=== PATIENT | male | born 1980 | race Two or more races ===

== ENCOUNTER 2017-04-03 10:16 | Inpatient (IN) | payer OTHER ==
[~2017-04-03] VITALS: Ht 172.7 cm; Wt 65.1 kg
[2017-04-03] MEDS ORDERED: SODIUM CHLORIDE 0.9% 1,000 ML IV ONE (11:03)
[2017-04-03] MEDS ORDERED: OMEP-110 PO (11:10)
[2017-04-03] MEDS ORDERED: METF500T4 PO (11:10)
[2017-04-03] MEDS ORDERED: ONDANSETRON 2MG/ML, 2ML ONE (11:16)
[2017-04-03] MEDS ORDERED: HYDROmorphone 1 MG/ML, 1ML ONE (11:16)
[2017-04-03] MEDS ORDERED: SODIUM CHLORIDE FLUSH 10ML SYR IVF ONE (11:30)
[2017-04-03] MEDS ORDERED: ONDANSETRON 2MG/ML, 2ML IVPush ONE (11:30)
[2017-04-03] MEDS ORDERED: HYDROmorphone 1 MG/ML, 1ML IVPush PRN (11:30)
[2017-04-03] MEDS ORDERED: SODIUM CHLORIDE 0.9% 1,000ML IVBOLUS ONE (11:30)
[2017-04-03 11:36] LABS: RAPID INFLUENZA A Negative (Negative); RAPID INFLUENZA B Negative (Negative)
[2017-04-03 11:40] LABS: HEMATOCRIT 47.5 % (39.2-51.8); HEMOGLOBIN 16.1 g/dL (13.7-18.0); WHITE BLOOD COUNT 8.6 x10^3/uL (3.4-10)
[2017-04-03 11:51] LABS: BLOOD UREA NITROGEN 25 mg/dL (7-18)
[2017-04-03 11:55] LABS: ASPARTATE AMINO TRANSFERASE 76 U/L (15-37)
[2017-04-03] MEDS ORDERED: HYDROmorphone 2 MG/ML, 1ML IVPush PRN (13:00)
[2017-04-03] MEDS ORDERED: OXYcodone IR 5MG TABLET PO PRN (13:00)
[2017-04-03] MEDS ORDERED: DEXTROSE 4 GM TAB.CHEW PO PRN (13:00)
[2017-04-03] MEDS ORDERED: ACETAMINOPHEN 325 MG TABLET PO PRN (13:00)
[2017-04-03] MEDS ORDERED: ONDANSETRON 2MG/ML, 2ML IVPush PRN (13:00)
[2017-04-03] MEDS ORDERED: GLUCAGON 1 MG IM PRN (13:00)
[2017-04-03] MEDS ORDERED: DEXTROSE 50%, 50ML SYRINGE IVPush PRN (13:00)
[2017-04-03] MEDS ORDERED: POLYETHYLENE GLYCOL 17 GM PACKET PO PRN (13:00)
[2017-04-03] MEDS ORDERED: DOCUSATE 100 MG CAPSULE PO PRN (13:00)
[2017-04-03 16:07] VITALS: BP 113/67
[2017-04-03] MEDS: NS + 20MEQ KCL 1,000 ML IV SCH ×2 (17:02→23:54)
[2017-04-03] MEDS: NICOTINE 14MG/24 HR PATCH.TD24 TD SCH (17:02)
[2017-04-03] MEDS: ENOXAPARIN 40 MG/0.4 ML SQ SCH (17:03)
[2017-04-03] MEDS: INSULIN ASPART 100 UNITS/ML, PEN SQ-INSULIN SCH ×2 (17:49→22:53)
[2017-04-03] MEDS: PLEASE ENTER ALLERGIES MC SCH ×2 (18:18)
[2017-04-03 19:41] VITALS: BP 102/63
[2017-04-03] MEDS: SODIUM CHLORIDE FLUSH 10ML SYR IVF SCH (22:36)
[2017-04-03] MEDS: FAMOTIDINE 20 MG/2 ML IVPush SCH (22:36)
[2017-04-04] MEDS: PLEASE ENTER ALLERGIES MC SCH ×2 (00:30)
[2017-04-04 01:46] VITALS: BP 107/61
[2017-04-04 05:31] LABS: ASPARTATE AMINO TRANSFERASE 46 U/L (15-37); BLOOD UREA NITROGEN 18 mg/dL (7-18)
[2017-04-04] MEDS: INSULIN ASPART 100 UNITS/ML, PEN SQ-INSULIN SCH ×4 (06:37→21:25)
[2017-04-04 07:26] VITALS: BP 110/68
[2017-04-04] MEDS: SODIUM CHLORIDE FLUSH 10ML SYR IVF SCH ×2 (09:04→21:27)
[2017-04-04] MEDS: FAMOTIDINE 20 MG/2 ML IVPush SCH (09:04)
[2017-04-04 14:02] VITALS: BP 96/58
[2017-04-04] MEDS: ENOXAPARIN 40 MG/0.4 ML SQ SCH (16:15)
[2017-04-04] MEDS: NICOTINE 14MG/24 HR PATCH.TD24 TD SCH (16:15)
[2017-04-04 20:00] VITALS: BP 98/61
[2017-04-04] MEDS: FAMOTIDINE 20 MG TABLET PO SCH (21:24)
[2017-04-05 02:00] VITALS: BP 105/63
[2017-04-05] MEDS: INSULIN ASPART 100 UNITS/ML, PEN SQ-INSULIN SCH (07:00)
[2017-04-05] MEDS ORDERED: FLU VACC QS2017-18 (36MOS+) UP/PF 0.5 ML IM-VACC ONE (07:30)
[2017-04-05] MEDS ORDERED: PNEUMOCOCCAL 23 VACCINE IM-VACC ONE (07:30)
[2017-04-05 08:40] VITALS: BP 90/52
[2017-04-05] MEDS: FAMOTIDINE 20 MG TABLET PO SCH (09:36)
[2017-04-05] MEDS: SODIUM CHLORIDE FLUSH 10ML SYR IVF SCH (09:38)
== END 2017-04-05 11:50 | disposition home or self-care (01) | DRG 438 ==
LOC: ED 12:32 → SUATTDRO 12:36 → EDIP 12:42 → 4NOR 15:54 → DCLOUNGE 04-05 11:35
PROVIDERS: ADMIT Family Medicine; ATTEND Family Medicine
DX: K85.20 Alcohol induced acute pancreatitis without necrosis or infection (principal); N17.0 Acute kidney failure with tubular necrosis; E87.1 Hypo-osmolality and hyponatremia; E11.9 Type 2 diabetes mellitus without complications; E86.0 Dehydration; K21.9 Gastro-esophageal reflux disease without esophagitis; K29.70 Gastritis, unspecified, without bleeding; Z80.0 Family history of malignant neoplasm of digestive organs; Z23 Encounter for immunization; Z79.84 Long term (current) use of oral hypoglycemic drugs; Z79.899 Other long term (current) drug therapy
CPT/HCPCS: 36415; 74022; 76700; 80053; 80061; 81001; 82962; 83690; 83735; 85025; 87086; 87400; 90686; 90732; 96361; 96374; J1170; J1650; J1815; J2405; J3480; J7030; S0028

== ENCOUNTER 2019-04-11 14:20 | Inpatient (IN) | payer OTHER ==
[~2019-04-11] VITALS: Ht 170.2 cm; Wt 58.9 kg
[~2019-04-11 14:20] MED LIST: ERGO500017 PO; FOLI-17 PO; INSULIN; MAGN400T50 PO; METF500T17 PO; OMEP-110 PO; PANT40TA5 PO; PHOS250T3 PO; SUCR1ORA5 PO; THIA100T67 PO
--- NOTE | 2019-04-11 14:57 | NUR ---
REPORT GIVEN FROM FLACA CANALES. DR KHAN HAS UPDATED PATIENT. CALL LIGHT IN PLACE. WILL CONTINUE TO MONITOR.
[2019-04-11] MEDS ORDERED: ONDANSETRON 2MG/ML, 2ML IVPush ONE (15:00)
[2019-04-11] MEDS ORDERED: FAMOTIDINE 20 MG/2 ML IV ONE (15:00)
[2019-04-11] MEDS ORDERED: SODIUM CHLORIDE 0.9% 1,000ML IVBOLUS ONE (15:00)
[2019-04-11] MEDS ORDERED: SODIUM CHLORIDE FLUSH 10ML SYR IVF ONE (15:00)
--- NOTE | 2019-04-11 15:00 | NUR ---
PT BIB GIRLFRIEND FOR N/V SINCE LAST NOC, HX OF DM AND PANCREATITIS. PT DENIES DIARRHEA, ABDOMEN NON TENDER. PT REPORTS HIS URINE THIS AM WAS VERY CONCENTRATED. PT WAS HYPOTENSIVE IN TRIAGE.
--- NOTE | 2019-04-11 15:03 | NUR ---
DR. KHAN AT BEDSIDE. BS WAS 154. IV STARTED AND FLUIDS RUNNING. BLOOD CULTURES X 2 WERE DRAWN.
[2019-04-11 15:12] LABS: BASOPHILS # (AUTO) 0.05 x10^3/uL (0-0.1); BASOPHILS % (AUTO) 1 % (0-1); EOSINOPHILS # (AUTO) 0.12 x10^3/uL (0-0.4); EOSINOPHILS % (AUTO) 2 % (1-7); LYMPHOCYTES # (AUTO) 1.38 x10^3/uL (1-3.4); LYMPHOCYTES % (AUTO) 17 % (22-44); MD NO; MEAN CORPUSCULAR HEMOGLOBIN 30.6 pg (27.5-34.5); MEAN CORPUSCULAR VOLUME 92.8 fL (81-97); MONOCYTES # (AUTO) 0.61 x10^3/uL (0.2-0.8); MONOCYTES % (AUTO) 8 % (2-9); NEUTROPHILS % (AUTO) 73 % (42-75); PLATELET COUNT 359 x10^3/uL (130-400); RED BLOOD COUNT 5.04 x10^6/uL (4.38-5.82); RED CELL DISTRIBUTION WIDTH 17.5 % (9.4-14.8)
--- NOTE | 2019-04-11 15:20 | NUR ---
PT IN CT.
[2019-04-11 15:24] LABS: ALANINE AMINOTRANSFERASE 28 U/L (12-78); ALBUMIN 4.2 g/dL (3.4-5.0); ANION GAP 19 mmol/L (5-15); CALCIUM 9.7 mg/dL (8.5-10.1); CHLORIDE 87 mmol/L (98-107)
[2019-04-11 15:27] LABS: ALKALINE PHOSPHATASE 100 U/L (45-117); BILIRUBIN,TOTAL 0.9 mg/dL (0.2-1.0); TOTAL PROTEIN 8.8 g/dL (6.4-8.2)
[2019-04-11] MEDS ORDERED: ONDANSETRON 2MG/ML, 2ML ONE (16:21)
[2019-04-11] MEDS ORDERED: FAMOTIDINE 20 MG/2 ML ONE (16:21)
[2019-04-11 16:25] LABS: ACETONE, SERUM Small (20mg/dL) mg/dL (Negative)
[2019-04-11] MEDS ORDERED: INSU100V13 SQ (16:27)
--- NOTE | 2019-04-11 16:50 | NUR ---
US BEING DONE AT BEDSIDE. PT IS A MED TELE HOLD.
[2019-04-11] MEDS ORDERED: SODIUM CHLORIDE 0.9% 1,000 ML IV ONE (17:00)
[2019-04-11] MEDS ORDERED: TEMAZEPAM 15 MG CAPSULE PO PRN (18:00)
[2019-04-11] MEDS ORDERED: hydrALAzine 20 MG/ML, 1ML IVPush PRN (18:00)
[2019-04-11] MEDS ORDERED: ACETAMINOPHEN 325 MG TABLET PO PRN (18:00)
[2019-04-11 18:28] VITALS: BP 102/60
[2019-04-11] MEDS ORDERED: POTASSIUM CHLORIDE 20 MEQ TAB.ER.PRT PO ONE (18:30)
[2019-04-11 19:12] LABS: HCT (SEDRATE) 41.5 % (39.2-51.8)
[2019-04-11 19:34] VITALS: BP 97/60
[2019-04-11 19:52] LABS: HEMOGLOBIN A1C 7.9 % (4.2-6.3)
[2019-04-11] MEDS: PANTOPROZOLE 40MG TABLET PO SCH (20:32)
[2019-04-11] MEDS: HEPARIN 5,000 UNITS/ML, 1ML SQ SCH (20:32)
[2019-04-11] MEDS: SODIUM CHLORIDE 0.9% 1,000 ML IV SCH (20:33)
[2019-04-11] MEDS: NICOTINE 21 MG/24 HR PATCH.TD24 TD SCH (20:36)
[2019-04-11] MEDS: INSULIN LISPRO 100 UNITS/ML, PEN SQ-INSULIN SCH ×2 (20:36→23:07)
[2019-04-12 00:22] LABS: MICROSCOPIC INDICATED
[2019-04-12 00:32] LABS: CULTURE INDICATED? NO
[2019-04-12 01:18] VITALS: BP 98/61
[2019-04-12] MEDS: HEPARIN 5,000 UNITS/ML, 1ML SQ SCH ×3 (04:05→20:20)
[2019-04-12] MEDS: SODIUM CHLORIDE 0.9% 1,000 ML IV SCH (04:05)
[2019-04-12] MEDS: ONDANSETRON 2MG/ML, 2ML IVPush PRN ×2 (04:06→11:40)
[2019-04-12] MEDS ORDERED: DEXTROSE 50%, 50ML SYRINGE IVPush PRN (04:30)
[2019-04-12] MEDS ORDERED: DEXTROSE 4 GM TAB.CHEW PO PRN (04:30)
[2019-04-12] MEDS ORDERED: GLUCAGON 1 MG IM PRN (04:30)
[2019-04-12 05:36] LABS: BASOPHILS # (AUTO) 0.03 x10^3/uL (0-0.1); BASOPHILS % (AUTO) 1 % (0-1); EOSINOPHILS # (AUTO) 0.14 x10^3/uL (0-0.4); EOSINOPHILS % (AUTO) 2 % (1-7); LYMPHOCYTES # (AUTO) 1.48 x10^3/uL (1-3.4); LYMPHOCYTES % (AUTO) 22 % (22-44); MD NO; MEAN CORPUSCULAR HGB CONC 32.4 g/dL (33.2-36.2); MEAN CORPUSCULAR VOLUME 92.7 fL (81-97); MEAN PLATELET VOLUME 7.1 fL (7.4-10.4); MONOCYTES # (AUTO) 0.68 x10^3/uL (0.2-0.8); MONOCYTES % (AUTO) 10 % (2-9); NEUTROPHILS # (AUTO) 4.57 x10^3/uL (1.8-6.8); NEUTROPHILS % (AUTO) 66 % (42-75); PLATELET COUNT 305 x10^3/uL (130-400); RED BLOOD COUNT 3.99 x10^6/uL (4.38-5.82); RED CELL DISTRIBUTION WIDTH 17.9 % (9.4-14.8)
[2019-04-12 05:42] LABS: CHLORIDE 100 mmol/L (98-107)
[2019-04-12 05:51] LABS: ALANINE AMINOTRANSFERASE 19 U/L (12-78); ALBUMIN 3.1 g/dL (3.4-5.0); ALKALINE PHOSPHATASE 65 U/L (45-117); ANION GAP 13 mmol/L (5-15); BILIRUBIN,TOTAL 0.8 mg/dL (0.2-1.0); CALCIUM 8.2 mg/dL (8.5-10.1); CREATININE 4.95 mg/dL (0.7-1.3); TOTAL PROTEIN 6.6 g/dL (6.4-8.2)
[2019-04-12] MEDS: INSULIN LISPRO 100 UNITS/ML, PEN SQ-INSULIN SCH ×4 (07:00→20:20)
[2019-04-12 07:04] VITALS: BP 82/42
[2019-04-12 08:17] VITALS: BP 96/54
[2019-04-12] MEDS: SODIUM CHLORIDE FLUSH 10ML SYR IVF SCH ×2 (08:19→20:20)
[2019-04-12] MEDS: PANTOPROZOLE 40MG TABLET PO SCH ×2 (08:19→20:20)
[2019-04-12] MEDS: POTASSIUM CHLORIDE 20 MEQ TAB.ER.PRT PO ONE ×2 (11:40→12:21)
[2019-04-12] MEDS: LACTATED RINGERS 1,000 ML IV SCH ×2 (11:41→20:20)
[2019-04-12 12:36] VITALS: BP 94/55
[2019-04-12] MEDS: NICOTINE 21 MG/24 HR PATCH.TD24 TD SCH (17:43)
[2019-04-12 19:33] VITALS: BP 98/61
[2019-04-12] MEDS: PROMETHAZINE 25 MG/ML, 1ML IM PRN (19:36)
[2019-04-13] MEDS: PROMETHAZINE 25 MG/ML, 1ML IM PRN ×3 (01:13→14:11)
[2019-04-13 02:03] VITALS: BP 93/61
[2019-04-13 05:19] LABS: BASOPHILS # (AUTO) 0.04 x10^3/uL (0-0.1); BASOPHILS % (AUTO) 1 % (0-1); EOSINOPHILS # (AUTO) 0.21 x10^3/uL (0-0.4); EOSINOPHILS % (AUTO) 3 % (1-7); LYMPHOCYTES # (AUTO) 2.21 x10^3/uL (1-3.4); LYMPHOCYTES % (AUTO) 30 % (22-44); MD NO; MEAN CORPUSCULAR HEMOGLOBIN 30.8 pg (27.5-34.5); MEAN CORPUSCULAR HGB CONC 32.7 g/dL (33.2-36.2); MEAN PLATELET VOLUME 7.7 fL (7.4-10.4); MONOCYTES # (AUTO) 0.52 x10^3/uL (0.2-0.8); MONOCYTES % (AUTO) 7 % (2-9); NEUTROPHILS # (AUTO) 4.43 x10^3/uL (1.8-6.8); NEUTROPHILS % (AUTO) 60 % (42-75); PLATELET COUNT 276 x10^3/uL (130-400); RED BLOOD COUNT 3.88 x10^6/uL (4.38-5.82); RED CELL DISTRIBUTION WIDTH 17.6 % (9.4-14.8)
[2019-04-13 05:26] LABS: ALANINE AMINOTRANSFERASE 19 U/L (12-78); ALBUMIN 3.1 g/dL (3.4-5.0); ANION GAP 9 mmol/L (5-15); CALCIUM 8.6 mg/dL (8.5-10.1); CHLORIDE 102 mmol/L (98-107); CREATININE 1.14 mg/dL (0.7-1.3)
[2019-04-13 05:28] LABS: ALKALINE PHOSPHATASE 64 U/L (45-117); BILIRUBIN,TOTAL 0.8 mg/dL (0.2-1.0); TOTAL PROTEIN 6.7 g/dL (6.4-8.2)
[2019-04-13] MEDS: LACTATED RINGERS 1,000 ML IV SCH (05:42)
[2019-04-13] MEDS: ONDANSETRON 2MG/ML, 2ML IVPush PRN ×2 (05:47→12:06)
[2019-04-13 07:35] VITALS: BP 91/52
[2019-04-13] MEDS: HEPARIN 5,000 UNITS/ML, 1ML SQ SCH ×2 (08:48→20:42)
[2019-04-13] MEDS: PANTOPROZOLE 40MG TABLET PO SCH ×2 (08:48→20:42)
[2019-04-13] MEDS: SODIUM CHLORIDE FLUSH 10ML SYR IVF SCH ×2 (08:52→20:43)
[2019-04-13] MEDS: INSULIN LISPRO 100 UNITS/ML, PEN SQ-INSULIN SCH ×4 (08:53→20:43)
[2019-04-13] MEDS ORDERED: POTASSIUM CHLORIDE 40 MEQ in LACTATED RINGERS 1,000 ML IV SCH (10:00)
[2019-04-13] MEDS: POTASSIUM CHLORIDE 40 MEQ in LACTATED RINGERS 1,000 ML IV SCH ×2 (12:26→22:31)
[2019-04-13 14:21] VITALS: BP 106/64
[2019-04-13] MEDS: POTASSIUM CHLORIDE 20 MEQ TAB.ER.PRT PO SCH (16:19)
[2019-04-13] MEDS: CALCIUM CARBONATE 500 MG TAB.CHEW PO SCH ×2 (17:25→20:42)
[2019-04-13] MEDS: NICOTINE 21 MG/24 HR PATCH.TD24 TD SCH (18:43)
[2019-04-13 19:21] VITALS: BP 95/63
[2019-04-14 01:15] VITALS: BP 106/66
[2019-04-14] MEDS: INSULIN LISPRO 100 UNITS/ML, PEN SQ-INSULIN SCH ×3 (07:00→15:58)
[2019-04-14 07:26] VITALS: BP 95/54
[2019-04-14] MEDS: POTASSIUM CHLORIDE 40 MEQ in LACTATED RINGERS 1,000 ML IV SCH (09:56)
[2019-04-14] MEDS: CALCIUM CARBONATE 500 MG TAB.CHEW PO SCH ×2 (09:56→16:02)
[2019-04-14] MEDS: POTASSIUM CHLORIDE 20 MEQ TAB.ER.PRT PO SCH ×2 (09:56→16:02)
[2019-04-14] MEDS: HEPARIN 5,000 UNITS/ML, 1ML SQ SCH (09:56)
[2019-04-14] MEDS: SODIUM CHLORIDE FLUSH 10ML SYR IVF SCH (09:56)
[2019-04-14] MEDS: PANTOPROZOLE 40MG TABLET PO SCH (09:56)
[2019-04-14 11:58] LABS: ANION GAP 10 mmol/L (5-15); CALCIUM 8.7 mg/dL (8.5-10.1); CHLORIDE 106 mmol/L (98-107); CREATININE 0.86 mg/dL (0.7-1.3)
[2019-04-14 12:25] VITALS: BP 105/61
[2019-04-14] MEDS ORDERED: PANT40TA5 PO (15:15)
[2019-04-14] MEDS ORDERED: ONDA8TAB16 SL (15:15)
[2019-04-15 16:21] LABS: ANA SCREEN NEGATIVE (Negative)
== END 2019-04-14 16:44 | disposition home or self-care (01) | DRG 683 ==
LOC: ED 16:08 → EDIP 16:09 → ED 16:31 → 4WST 18:10 → 4EST 04-14 05:30 → DCLOUNGE 04-14 16:32
PROVIDERS: ADMIT Internal Medicine; ATTEND Hospitalist
DX: N17.0 Acute kidney failure with tubular necrosis (principal); E46 Unspecified protein-calorie malnutrition; E87.1 Hypo-osmolality and hyponatremia; E87.2 Acidosis; E86.0 Dehydration; E87.6 Hypokalemia; F17.200 Nicotine dependence, unspecified, uncomplicated; I10 Essential (primary) hypertension; K31.84 Gastroparesis; K52.9 Noninfective gastroenteritis and colitis, unspecified; K21.9 Gastro-esophageal reflux disease without esophagitis; Z79.4 Long term (current) use of insulin; Z79.899 Other long term (current) drug therapy; Z68.20 Body mass index [BMI] 20.0-20.9, adult; E11.649 Type 2 diabetes mellitus with hypoglycemia without coma
CPT/HCPCS: 36415; 74022; 76770; 80048; 80053; 81001; 82010; 82570; 82962; 83036; 83605; 83690; 83735; 83930; 84100; 84156; 84443; 84550; 85025; 85651; 86038; 86160; 86704; 86706; 86708; 86803; 87040; 87340; 93005; 96361; 96374; 99291; J1644; J1815; J2405; J2550; J3480; J3490; J7030; J7120; G0378

== ENCOUNTER 2019-04-30 15:04 | Inpatient (IN) | payer OTHER ==
[~2019-04-30] VITALS: Ht 170.2 cm; Wt 60.4 kg
[~2019-04-30 15:04] MED LIST changes: +INSU100V13 SQ; +ONDA8TAB16 SL
[2019-04-30] MEDS ORDERED: SODIUM CHLORIDE FLUSH 10ML SYR IVF ONE (15:30)
[2019-04-30] MEDS ORDERED: ONDANSETRON 2MG/ML, 2ML IVPush ONE (15:30)
[2019-04-30] MEDS ORDERED: SODIUM CHLORIDE 0.9% 1,000ML IVBOLUS ONE (15:30)
--- NOTE | 2019-04-30 15:39 | NUR ---
PT HERE WITH C/O N/V SINCE YESTERDAY AFTERNOON, PT WITH HX DM. TOOK FSBG THIS AFTERNOON APPROX 1130 AND READING PER PT WAS 120. PT WAS ABLE TO GET SOME BROTH DOWN BUT NOT MUCH ELSE SINCE THEN. PT DENIES CP, SOB. PT TO BP MONITOR, CARD MONITOR, CONT PULSE OX., PIV INITIATED, PT MEDICATED PER JUL
[2019-04-30] MEDS ORDERED: ONDANSETRON 2MG/ML, 2ML ONE (15:42)
[2019-04-30 15:48] LABS: BASOPHILS # (AUTO) 0.03 x10^3/uL (0-0.1); BASOPHILS % (AUTO) 0 % (0-1); EOSINOPHILS # (AUTO) 0.05 x10^3/uL (0-0.4); EOSINOPHILS % (AUTO) 1 % (1-7); LYMPHOCYTES # (AUTO) 1.35 x10^3/uL (1-3.4); LYMPHOCYTES % (AUTO) 16 % (22-44); MD NO; MEAN CORPUSCULAR HEMOGLOBIN 30.6 pg (27.5-34.5); MEAN CORPUSCULAR HGB CONC 32.1 g/dL (33.2-36.2); MEAN CORPUSCULAR VOLUME 95.2 fL (81-97); MEAN PLATELET VOLUME 7.7 fL (7.4-10.4); MONOCYTES # (AUTO) 0.66 x10^3/uL (0.2-0.8); MONOCYTES % (AUTO) 8 % (2-9); NEUTROPHILS # (AUTO) 6.44 x10^3/uL (1.8-6.8); NEUTROPHILS % (AUTO) 76 % (42-75); O2 FLOW ROOM AIR L/min; PLATELET COUNT 381 x10^3/uL (130-400); RED BLOOD COUNT 5.25 x10^6/uL (4.38-5.82); RED CELL DISTRIBUTION WIDTH 16.9 % (9.4-14.8)
[2019-04-30 15:57] LABS: ALANINE AMINOTRANSFERASE 84 U/L (12-78); ALBUMIN 5.2 g/dL (3.4-5.0); ANION GAP 16 mmol/L (5-15); CALCIUM 10.4 mg/dL (8.5-10.1); CHLORIDE 74 mmol/L (98-107); CREATININE 3.62 mg/dL (0.7-1.3)
[2019-04-30 15:59] LABS: ALKALINE PHOSPHATASE 149 U/L (45-117)
[2019-04-30 16:09] LABS: ACETONE, SERUM Small (20mg/dL) mg/dL (Negative)
[2019-04-30] MEDS ORDERED: POTASSIUM CHLORIDE 40 MEQ in SODIUM CHLORIDE 0.9% 500 ML IV ONE (16:30)
[2019-04-30] MEDS ORDERED: morphine SULFATE 10 MG/ML, 1ML IVPush PRN (17:00)
[2019-04-30] MEDS ORDERED: ONDANSETRON 2MG/ML, 2ML IVPush PRN (17:00)
[2019-04-30] MEDS ORDERED: BACLOFEN 10 MG TABLET PO PRN (17:00)
[2019-04-30] MEDS ORDERED: ACETAMINOPHEN 325 MG TABLET PO PRN (17:00)
[2019-04-30] MEDS ORDERED: hydrALAzine 20 MG/ML, 1ML IVPush PRN (17:00)
[2019-04-30] MEDS ORDERED: OXYcodone IR 5MG TABLET PO PRN (17:00)
[2019-04-30] MEDS ORDERED: GLUCAGON 1 MG IM PRN (17:00)
[2019-04-30] MEDS ORDERED: PROMETHAZINE 25 MG/ML, 1ML IM PRN (17:00)
[2019-04-30] MEDS ORDERED: ONDANSETRON ODT 4 MG PO PRN (17:00)
[2019-04-30] MEDS ORDERED: DEXTROSE 4 GM TAB.CHEW PO PRN (17:00)
--- NOTE | 2019-04-30 17:29 | NUR ---
PT RESTING IN BED, MEDICATED PER MAR/ERMD ORDER. NAD NOTED
--- NOTE | 2019-04-30 17:54 | NUR ---
REPORT GIVEN TO RECANABELLE THAYER
[2019-04-30 17:59] VITALS: BP 107/72
[2019-04-30] MEDS ORDERED: POTA99TA24 PO (18:20)
[2019-04-30 20:03] VITALS: BP 93/64
[2019-04-30] MEDS: INSULIN LISPRO 100 UNITS/ML, PEN SQ-INSULIN SCH (21:00)
[2019-04-30] MEDS: SODIUM CHLORIDE 0.9% 1,000 ML IV SCH (21:00)
[2019-04-30] MEDS: SODIUM CHLORIDE FLUSH 10ML SYR IVF SCH (21:31)
[2019-04-30] MEDS: INSULIN GLARGINE 100 UNITS/ML, PEN SQ-INSULIN SCH (21:32)
[2019-04-30 21:36] LABS: ANION GAP 9 mmol/L (5-15); CALCIUM 8.7 mg/dL (8.5-10.1); CHLORIDE 89 mmol/L (98-107); CREATININE 2.27 mg/dL (0.7-1.3)
[2019-05-01 01:09] LABS: ANION GAP 7 mmol/L (5-15); CALCIUM 8.5 mg/dL (8.5-10.1); CHLORIDE 90 mmol/L (98-107); CREATININE 1.97 mg/dL (0.7-1.3)
[2019-05-01 01:36] VITALS: BP 97/68
[2019-05-01] MEDS ORDERED: POTASSIUM CHLORIDE 40 MEQ in SODIUM CHLORIDE 0.9% 500 ML IV ONE (02:00)
[2019-05-01 05:15] LABS: ALBUMIN 3.5 g/dL (3.4-5.0); ANION GAP 7 mmol/L (5-15); CALCIUM 8.3 mg/dL (8.5-10.1); CHLORIDE 89 mmol/L (98-107)
[2019-05-01 05:19] LABS: ALANINE AMINOTRANSFERASE 64 U/L (12-78); ALKALINE PHOSPHATASE 103 U/L (45-117); BILIRUBIN,TOTAL 0.6 mg/dL (0.2-1.0); CREATININE 1.66 mg/dL (0.7-1.3); TOTAL PROTEIN 7.1 g/dL (6.4-8.2)
[2019-05-01 05:32] LABS: BASOPHILS # (AUTO) 0.04 x10^3/uL (0-0.1); BASOPHILS % (AUTO) 1 % (0-1); EOSINOPHILS # (AUTO) 0.32 x10^3/uL (0-0.4); EOSINOPHILS % (AUTO) 5 % (1-7); LYMPHOCYTES % (AUTO) 27 % (22-44); MD NO; MEAN CORPUSCULAR HEMOGLOBIN 30.7 pg (27.5-34.5); MEAN CORPUSCULAR HGB CONC 32.6 g/dL (33.2-36.2); MEAN CORPUSCULAR VOLUME 94.2 fL (81-97); MEAN PLATELET VOLUME 7.6 fL (7.4-10.4); MONOCYTES # (AUTO) 0.73 x10^3/uL (0.2-0.8); MONOCYTES % (AUTO) 11 % (2-9); NEUTROPHILS # (AUTO) 4.04 x10^3/uL (1.8-6.8); NEUTROPHILS % (AUTO) 58 % (42-75); PLATELET COUNT 302 x10^3/uL (130-400); RED BLOOD COUNT 4.03 x10^6/uL (4.38-5.82); RED CELL DISTRIBUTION WIDTH 17.2 % (9.4-14.8)
[2019-05-01] MEDS: INSULIN LISPRO 100 UNITS/ML, PEN SQ-INSULIN SCH ×4 (07:00→20:47)
[2019-05-01] MEDS: PANTOPRAZOLE 40 MG IV IVPush SCH (07:25)
[2019-05-01] MEDS: INSULIN GLARGINE 100 UNITS/ML, PEN SQ-INSULIN SCH ×2 (07:26→20:47)
[2019-05-01] MEDS: SODIUM CHLORIDE FLUSH 10ML SYR IVF SCH ×2 (07:26→20:47)
[2019-05-01] MEDS: SODIUM CHLORIDE 0.9% 1,000 ML IV SCH ×3 (07:26→22:53)
[2019-05-01] MEDS ORDERED: POTASSIUM CHLORIDE 20 MEQ in SODIUM CHLORIDE 0.9% 250 ML IV ONE (07:30)
[2019-05-01] MEDS ORDERED: CALCIUM GLUCONATE 4.6 MEQ in SODIUM CHLORIDE 0.9% 50 ML IV ONE (07:30)
[2019-05-01 09:01] VITALS: BP 120/72
[2019-05-01] MEDS ORDERED: METOCLOPRAMIDE 5 MG/ML, 2ML IVPush PRN (12:00)
[2019-05-01] MEDS ORDERED: GADOTERATE 10 MMOL/20 ML VIAL ONE (12:29)
[2019-05-01 15:54] VITALS: BP 110/71
[2019-05-01 20:15] VITALS: BP 116/70
[2019-05-01] MEDS: DEXTROSE 50%, 50ML SYRINGE IVPush PRN (20:15)
[2019-05-02 00:39] VITALS: BP 106/61
[2019-05-02] MEDS: SODIUM CHLORIDE 0.9% 1,000 ML IV SCH (05:29)
[2019-05-02 05:33] LABS: BASOPHILS # (AUTO) 0.02 x10^3/uL (0-0.1); BASOPHILS % (AUTO) 0 % (0-1); EOSINOPHILS # (AUTO) 0.19 x10^3/uL (0-0.4); EOSINOPHILS % (AUTO) 3 % (1-7); LYMPHOCYTES # (AUTO) 1.24 x10^3/uL (1-3.4); LYMPHOCYTES % (AUTO) 18 % (22-44); MD NO; MEAN CORPUSCULAR HEMOGLOBIN 30.9 pg (27.5-34.5); MEAN CORPUSCULAR HGB CONC 32.6 g/dL (33.2-36.2); MEAN CORPUSCULAR VOLUME 94.9 fL (81-97); MEAN PLATELET VOLUME 7.2 fL (7.4-10.4); MONOCYTES # (AUTO) 0.52 x10^3/uL (0.2-0.8); MONOCYTES % (AUTO) 7 % (2-9); NEUTROPHILS # (AUTO) 5.14 x10^3/uL (1.8-6.8); NEUTROPHILS % (AUTO) 72 % (42-75); PLATELET COUNT 256 x10^3/uL (130-400); RED BLOOD COUNT 3.59 x10^6/uL (4.38-5.82); RED CELL DISTRIBUTION WIDTH 16.8 % (9.4-14.8)
[2019-05-02 05:44] LABS: ALBUMIN 2.9 g/dL (3.4-5.0); ANION GAP 6 mmol/L (5-15); CHLORIDE 101 mmol/L (98-107)
[2019-05-02 05:46] LABS: CREATININE 0.78 mg/dL (0.7-1.3)
[2019-05-02] MEDS: DEXTROSE 50%, 50ML SYRINGE IVPush PRN (05:55)
[2019-05-02] MEDS: PANTOPRAZOLE 40 MG IV IVPush SCH (08:10)
[2019-05-02] MEDS: INSULIN LISPRO 100 UNITS/ML, PEN SQ-INSULIN SCH ×4 (08:11→19:37)
[2019-05-02] MEDS: SODIUM CHLORIDE FLUSH 10ML SYR IVF SCH ×2 (08:11→19:37)
[2019-05-02] MEDS: INSULIN GLARGINE 100 UNITS/ML, PEN SQ-INSULIN SCH ×2 (09:14→19:38)
[2019-05-02 09:49] VITALS: BP 106/50
[2019-05-02] MEDS: D5%-0.45NACL+KCL 20MEQ 1,000 ML IV SCH ×2 (12:08→22:58)
[2019-05-02 16:01] VITALS: BP 103/63
[2019-05-02] MEDS: POLYETHYLENE GLYCOL 17 GM PACKET PO PRN (18:32)
[2019-05-02 20:21] VITALS: BP 106/63
[2019-05-03 02:11] VITALS: BP 103/65
[2019-05-03 06:20] LABS: ALBUMIN 2.6 g/dL (3.4-5.0); ANION GAP 6 mmol/L (5-15); CALCIUM 7.8 mg/dL (8.5-10.1); CHLORIDE 102 mmol/L (98-107); CREATININE 0.88 mg/dL (0.7-1.3)
[2019-05-03 06:22] LABS: BASOPHILS # (AUTO) 0.03 x10^3/uL (0-0.1); BASOPHILS % (AUTO) 1 % (0-1); EOSINOPHILS # (AUTO) 0.03 x10^3/uL (0-0.4); EOSINOPHILS % (AUTO) 1 % (1-7); LYMPHOCYTES # (AUTO) 1.01 x10^3/uL (1-3.4); LYMPHOCYTES % (AUTO) 30 % (22-44); MD NO; MEAN CORPUSCULAR HEMOGLOBIN 30.9 pg (27.5-34.5); MEAN CORPUSCULAR VOLUME 93.8 fL (81-97); MONOCYTES # (AUTO) 0.47 x10^3/uL (0.2-0.8); MONOCYTES % (AUTO) 14 % (2-9); NEUTROPHILS # (AUTO) 1.88 x10^3/uL (1.8-6.8); NEUTROPHILS % (AUTO) 55 % (42-75); PLATELET COUNT 224 x10^3/uL (130-400); RED BLOOD COUNT 3.51 x10^6/uL (4.38-5.82); RED CELL DISTRIBUTION WIDTH 16.4 % (9.4-14.8)
[2019-05-03] MEDS ORDERED: MIDAZOLAM 1 MG/ML, 2ML ONE (07:00)
[2019-05-03] MEDS ORDERED: FENTANYL PF 100 MCG/2ML ONE (07:00)
[2019-05-03] MEDS ORDERED: PROPOFOL 10 MG/ML, 20ML ONE (07:01)
[2019-05-03] MEDS ORDERED: hydrALAzine 20 MG/ML, 1ML IV PRN (07:30)
[2019-05-03] MEDS ORDERED: OXYcodone 5 MG/5 ML ORAL.SOL UDC PO PRN (07:30)
[2019-05-03] MEDS ORDERED: POTASSIUM PHOSPHATE 44 MEQ in SODIUM CHLORIDE 0.9% 500 ML IV ONE (07:30)
[2019-05-03] MEDS ORDERED: LABETALOL 5MG/ML, 20ML IV PRN (07:30)
[2019-05-03] MEDS ORDERED: ONDANSETRON 2MG/ML, 2ML IV PRN (07:30)
[2019-05-03] MEDS ORDERED: MAGNESIUM SULFATE PMX 2GM/50ML 50 ML IV ONE (07:30)
[2019-05-03] MEDS ORDERED: CALCIUM GLUCONATE 4.6 MEQ in SODIUM CHLORIDE 0.9% 50 ML IV ONE (07:30)
[2019-05-03] MEDS ORDERED: FENTANYL PF 100 MCG/2ML IV PRN (07:30)
[2019-05-03] MEDS ORDERED: MEPERIDINE/PF 25MG/ML,1ML IVPush PRN (07:30)
[2019-05-03] MEDS ORDERED: PROMETHAZINE 25 MG/ML, 1ML IV PRN (07:30)
[2019-05-03] MEDS ORDERED: HYDROmorphone 2 MG/ML, 1ML IVPush PRN (07:30)
[2019-05-03] MEDS ORDERED: SUCCINYLCHOLINE 20 MG/ML, 10ML ONE (07:33)
[2019-05-03] MEDS ORDERED: ROCURONIUM 10MG/ML,5ML ONE ×2 (07:33→07:36)
[2019-05-03] MEDS ORDERED: DEXAMETHASONE 4 MG/ML, 1ML ONE ×2 (07:43)
[2019-05-03] MEDS ORDERED: ONDANSETRON 2MG/ML, 2ML ONE (07:44)
[2019-05-03 08:45] VITALS: BP 94/53
[2019-05-03] MEDS: INSULIN LISPRO 100 UNITS/ML, PEN SQ-INSULIN SCH ×4 (09:13→21:27)
[2019-05-03] MEDS: INSULIN GLARGINE 100 UNITS/ML, PEN SQ-INSULIN SCH ×2 (09:17→21:00)
[2019-05-03] MEDS: SODIUM CHLORIDE FLUSH 10ML SYR IVF SCH ×2 (09:18→21:26)
[2019-05-03] MEDS: PANTOPRAZOLE 40 MG IV IVPush SCH (09:55)
[2019-05-03] MEDS: POLYETHYLENE GLYCOL 17 GM PACKET PO PRN (13:24)
[2019-05-03 13:30] VITALS: BP 102/61
[2019-05-03] MEDS: D5%-0.45NACL+KCL 20MEQ 1,000 ML IV SCH (15:25)
[2019-05-03] MEDS ORDERED: POTASSIUM CHLORIDE 20 MEQ in SODIUM CHLORIDE 0.9% 250 ML IV ONE (15:30)
[2019-05-03 20:50] VITALS: BP 101/62
[2019-05-04 00:59] VITALS: BP 92/54
[2019-05-04 06:10] LABS: BASOPHILS # (AUTO) 0.02 x10^3/uL (0-0.1); BASOPHILS % (AUTO) 1 % (0-1); EOSINOPHILS # (AUTO) 0.11 x10^3/uL (0-0.4); EOSINOPHILS % (AUTO) 3 % (1-7); LYMPHOCYTES # (AUTO) 1.45 x10^3/uL (1-3.4); LYMPHOCYTES % (AUTO) 40 % (22-44); MD NO; MEAN CORPUSCULAR HEMOGLOBIN 30.4 pg (27.5-34.5); MEAN CORPUSCULAR HGB CONC 32.7 g/dL (33.2-36.2); MEAN PLATELET VOLUME 7.3 fL (7.4-10.4); MONOCYTES # (AUTO) 0.52 x10^3/uL (0.2-0.8); MONOCYTES % (AUTO) 15 % (2-9); NEUTROPHILS # (AUTO) 1.52 x10^3/uL (1.8-6.8); NEUTROPHILS % (AUTO) 42 % (42-75); PLATELET COUNT 214 x10^3/uL (130-400); RED BLOOD COUNT 3.51 x10^6/uL (4.38-5.82); RED CELL DISTRIBUTION WIDTH 16.3 % (9.4-14.8)
[2019-05-04 06:22] LABS: CHLORIDE 108 mmol/L (98-107)
[2019-05-04 06:33] LABS: ALBUMIN 2.4 g/dL (3.4-5.0); ANION GAP 5 mmol/L (5-15); CREATININE 0.78 mg/dL (0.7-1.3)
[2019-05-04 07:17] VITALS: BP 99/62
[2019-05-04] MEDS ORDERED: CALCIUM GLUCONATE 4.6 MEQ in SODIUM CHLORIDE 0.9% 50 ML IV ONE (07:30)
[2019-05-04] MEDS ORDERED: SODIUM PHOSPHATE 40 MEQ in SODIUM CHLORIDE 0.9% 500 ML IV ONE (07:30)
[2019-05-04] MEDS ORDERED: MAGNESIUM SULFATE PMX 2GM/50ML 50 ML IV ONE (07:30)
[2019-05-04] MEDS ORDERED: POTASSIUM PHOSPHATE 44 MEQ in SODIUM CHLORIDE 0.9% 500 ML IV ONE (07:30)
[2019-05-04] MEDS: INSULIN LISPRO 100 UNITS/ML, PEN SQ-INSULIN SCH ×4 (10:06→20:06)
[2019-05-04] MEDS: PANTOPRAZOLE 40 MG IV IVPush SCH (10:06)
[2019-05-04] MEDS: SODIUM CHLORIDE FLUSH 10ML SYR IVF SCH ×2 (10:07→20:06)
[2019-05-04] MEDS: INSULIN GLARGINE 100 UNITS/ML, PEN SQ-INSULIN SCH ×2 (13:24→20:06)
[2019-05-04 14:27] VITALS: BP 95/58
[2019-05-04 19:45] VITALS: BP 97/61
[2019-05-05 01:16] VITALS: BP 94/59
[2019-05-05 06:10] LABS: BASOPHILS # (AUTO) 0.03 x10^3/uL (0-0.1); BASOPHILS % (AUTO) 1 % (0-1); EOSINOPHILS # (AUTO) 0.14 x10^3/uL (0-0.4); EOSINOPHILS % (AUTO) 4 % (1-7); LYMPHOCYTES # (AUTO) 1.84 x10^3/uL (1-3.4); LYMPHOCYTES % (AUTO) 44 % (22-44); MD NO; MEAN CORPUSCULAR HEMOGLOBIN 30.5 pg (27.5-34.5); MEAN CORPUSCULAR HGB CONC 32.7 g/dL (33.2-36.2); MEAN CORPUSCULAR VOLUME 93.2 fL (81-97); MEAN PLATELET VOLUME 7.5 fL (7.4-10.4); MONOCYTES # (AUTO) 0.47 x10^3/uL (0.2-0.8); MONOCYTES % (AUTO) 11 % (2-9); NEUTROPHILS # (AUTO) 1.68 x10^3/uL (1.8-6.8); NEUTROPHILS % (AUTO) 40 % (42-75); PLATELET COUNT 243 x10^3/uL (130-400); RED BLOOD COUNT 3.59 x10^6/uL (4.38-5.82); RED CELL DISTRIBUTION WIDTH 16.7 % (9.4-14.8)
[2019-05-05 06:12] LABS: ALBUMIN 2.5 g/dL (3.4-5.0); ANION GAP 5 mmol/L (5-15); CALCIUM 8.4 mg/dL (8.5-10.1); CHLORIDE 110 mmol/L (98-107)
[2019-05-05 06:14] LABS: CREATININE 0.65 mg/dL (0.7-1.3)
[2019-05-05 07:40] VITALS: BP 95/55
[2019-05-05] MEDS: INSULIN LISPRO 100 UNITS/ML, PEN SQ-INSULIN SCH ×2 (08:30→12:06)
[2019-05-05] MEDS: PANTOPRAZOLE 40 MG IV IVPush SCH (08:38)
[2019-05-05] MEDS: SODIUM CHLORIDE FLUSH 10ML SYR IVF SCH (08:41)
[2019-05-05] MEDS: INSULIN GLARGINE 100 UNITS/ML, PEN SQ-INSULIN SCH (08:41)
[2019-05-05] MEDS ORDERED: MAGNESIUM OXIDE 400 MG TABLET PO SCH (09:00)
[2019-05-05] MEDS ORDERED: CALCIUM/VITAMIN D3 250-125 TABLET PO SCH (09:00)
[2019-05-05 12:39] VITALS: BP 97/59
== END 2019-05-05 16:03 | disposition home or self-care (01) | DRG 380 ==
LOC: ED 15:46 → EDIP 16:29 → 4WST 17:56 → DCLOUNGE 05-05 15:55
PROVIDERS: ADMIT Family Medicine; ATTEND Family Medicine
PROC: 0DB98ZX Excision of Duodenum, Via Natural or Artificial Opening Endoscopic, Diagnostic (ICD-10-PCS; principal; 2019-04-30)
DX: K31.1 Adult hypertrophic pyloric stenosis (principal); N17.0 Acute kidney failure with tubular necrosis; E87.1 Hypo-osmolality and hyponatremia; E87.3 Alkalosis; K86.1 Other chronic pancreatitis; E11.649 Type 2 diabetes mellitus with hypoglycemia without coma; E83.39 Other disorders of phosphorus metabolism; E83.42 Hypomagnesemia; E83.51 Hypocalcemia; E86.0 Dehydration; E86.1 Hypovolemia; E87.6 Hypokalemia; K21.0 Gastro-esophageal reflux disease with esophagitis; Z79.4 Long term (current) use of insulin; Z80.0 Family history of malignant neoplasm of digestive organs; Z87.891 Personal history of nicotine dependence
CPT/HCPCS: 36415; 74176; 74183; 80048; 80053; 80069; 82010; 82570; 82803; 82962; 83036; 83690; 83735; 83930; 83935; 84300; 85025; 88305; 93005; 96361; 96374; 96375; G0378; J0610; J1100; J2250; J2405; J2704; J3010; J3480; A9575; C9113; J0330; J1815; J3475; J7030; J7040; J7050

== ENCOUNTER 2019-07-08 15:08 | Inpatient (IN) | payer MEDICAID ==
[~2019-07-08] VITALS: Ht 177.8 cm; Wt 54.8 kg
[~2019-07-08 15:08] MED LIST changes: +AMOX1TAB64 PO; +LACT1CAP35 PO; +POTA99TA24 PO
--- NOTE | 2019-07-08 15:55 | NUR ---
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
[2019-07-08] MEDS ORDERED: ONDANSETRON 2MG/ML, 2ML ONE (16:13)
[2019-07-08] MEDS ORDERED: PANTOPRAZOLE 40 MG IV ONE (16:13)
[2019-07-08] MEDS ORDERED: ONDANSETRON 2MG/ML, 2ML IVPush ONE (16:30)
[2019-07-08] MEDS ORDERED: PANTOPRAZOLE 40 MG IV IVPush ONE (16:30)
[2019-07-08] MEDS ORDERED: SODIUM CHLORIDE 0.9% 1,000ML IVBOLUS ONE ×2 (16:30→17:00)
[2019-07-08 16:31] LABS: BASOPHILS # (AUTO) 0.06 x10^3/uL (0-0.1); BASOPHILS % (AUTO) 1 % (0-1); EOSINOPHILS # (AUTO) 0.03 x10^3/uL (0-0.4); EOSINOPHILS % (AUTO) 1 % (1-7); LYMPHOCYTES # (AUTO) 1.34 x10^3/uL (1-3.4); LYMPHOCYTES % (AUTO) 20 % (22-44); MD NO; MEAN CORPUSCULAR HEMOGLOBIN 31.5 pg (27.5-34.5); MEAN CORPUSCULAR HGB CONC 33.2 g/dL (33.2-36.2); MEAN PLATELET VOLUME 7.4 fL (7.4-10.4); MONOCYTES # (AUTO) 0.59 x10^3/uL (0.2-0.8); MONOCYTES % (AUTO) 9 % (2-9); NEUTROPHILS # (AUTO) 4.56 x10^3/uL (1.8-6.8); NEUTROPHILS % (AUTO) 69 % (42-75); PLATELET COUNT 364 x10^3/uL (130-400); RED BLOOD COUNT 4.35 x10^6/uL (4.38-5.82); RED CELL DISTRIBUTION WIDTH 15.5 % (9.4-14.8)
[2019-07-08 16:37] LABS: ALANINE AMINOTRANSFERASE 21 U/L (12-78); ALBUMIN 4.7 g/dL (3.4-5.0); ANION GAP 11 mmol/L (5-15); CHLORIDE 99 mmol/L (98-107)
[2019-07-08 16:38] LABS: ALKALINE PHOSPHATASE 105 U/L (45-117); BILIRUBIN,TOTAL 0.6 mg/dL (0.2-1.0); TOTAL PROTEIN 9.1 g/dL (6.4-8.2)
--- NOTE | 2019-07-08 17:06 | NUR ---
2ND L IVF STARTED
--- NOTE | 2019-07-08 17:08 | NUR ---
PT GIVEN WATER FOR PO CHALLENGE
--- NOTE | 2019-07-08 18:21 | NUR ---
PT FAILED PO CHALLENGE, NOTIFIED. PT TO BE ADMITTED.
[2019-07-08] MEDS ORDERED: POTASSIUM CHLORIDE 20 MEQ TAB.ER.PRT ONE (19:28)
[2019-07-08] MEDS ORDERED: POTASSIUM CHLORIDE 20 MEQ TAB.ER.PRT PO ONE (19:30)
[2019-07-08] MEDS ORDERED: POLYETHYLENE GLYCOL 17 GM PACKET PO PRN (20:00)
[2019-07-08] MEDS ORDERED: BISACODYL 10 MG SUPP PR PRN (20:00)
[2019-07-08] MEDS ORDERED: ACETAMINOPHEN 325 MG TABLET PO PRN (20:30)
[2019-07-08] MEDS: SULFAMETH./TRIMETHOPRIM DS 800MG/160MG TABLET PO SCH (20:40)
[2019-07-08] MEDS: LACTOBACILLUS 1GM/ PACKET PO SCH (20:40)
[2019-07-08] MEDS: PANTOPROZOLE 40MG TABLET PO SCH (20:40)
[2019-07-08] MEDS: NS + 20MEQ KCL 1,000 ML IV SCH (20:40)
[2019-07-08 20:44] VITALS: BP 113/75
[2019-07-09 00:33] VITALS: BP 107/65
[2019-07-09 03:54] LABS: ANION GAP 8 mmol/L (5-15); CALCIUM 8.7 mg/dL (8.5-10.1); CHLORIDE 110 mmol/L (98-107); CREATININE 0.88 mg/dL (0.7-1.3)
[2019-07-09] MEDS: NS + 20MEQ KCL 1,000 ML IV SCH (05:26)
[2019-07-09 06:48] VITALS: BP 104/63
[2019-07-09] MEDS: LACTOBACILLUS 1GM/ PACKET PO SCH (10:05)
[2019-07-09] MEDS: PANTOPROZOLE 40MG TABLET PO SCH ×2 (10:06→19:59)
[2019-07-09] MEDS: SULFAMETH./TRIMETHOPRIM DS 800MG/160MG TABLET PO SCH ×2 (10:06→19:59)
[2019-07-09] MEDS: SENNA/DOCUSATE TABLET PO SCH (10:06)
[2019-07-09] MEDS: ONDANSETRON 2MG/ML, 2ML IVPush PRN ×2 (10:17→20:16)
[2019-07-09] MEDS ORDERED: POTASSIUM CHLORIDE 20 MEQ TAB.ER.PRT PO ONE (11:30)
[2019-07-09] MEDS ORDERED: METOCLOPRAMIDE 5 MG/ML, 2ML IVPush PRN (11:30)
[2019-07-09] MEDS: SODIUM CHLORIDE 0.9% 1,000 ML IV SCH ×2 (12:11→19:59)
[2019-07-09 15:05] VITALS: BP 108/68
[2019-07-09 20:17] VITALS: BP 111/68
[2019-07-10 02:02] VITALS: BP 108/62
[2019-07-10] MEDS: SODIUM CHLORIDE 0.9% 1,000 ML IV SCH ×2 (04:00→13:03)
[2019-07-10] MEDS: ONDANSETRON 2MG/ML, 2ML IVPush PRN (04:00)
[2019-07-10 07:57] VITALS: BP 101/58
[2019-07-10] MEDS: LACTOBACILLUS 1GM/ PACKET PO SCH (08:36)
[2019-07-10] MEDS: SENNA/DOCUSATE TABLET PO SCH (08:36)
[2019-07-10] MEDS: PANTOPROZOLE 40MG TABLET PO SCH ×2 (08:36→20:03)
[2019-07-10] MEDS: SULFAMETH./TRIMETHOPRIM DS 800MG/160MG TABLET PO SCH (08:37)
[2019-07-10 11:26] LABS: ANION GAP 7 mmol/L (5-15); CALCIUM 8.3 mg/dL (8.5-10.1); CHLORIDE 109 mmol/L (98-107); CREATININE 0.76 mg/dL (0.7-1.3)
[2019-07-10 12:09] VITALS: BP 96/54
[2019-07-10] MEDS ORDERED: POTASSIUM CHLORIDE 20 MEQ TAB.ER.PRT PO ONE (14:30)
[2019-07-10] MEDS ORDERED: OMNIPAQUE 350 MG/ML, 100ML BOTTLE ONE (16:52)
[2019-07-10] MEDS ORDERED: DIPHENHYDRAMINE 25 MG CAPSULE ONE (16:53)
[2019-07-10] MEDS ORDERED: DIPHENHYDRAMINE 25 MG CAPSULE PO ONE (17:00)
[2019-07-10] MEDS: METOCLOPRAMIDE 5 MG/ML, 2ML IVPush PRN (17:47)
[2019-07-10 19:13] VITALS: BP 105/64
[2019-07-11 01:01] VITALS: BP 104/64
[2019-07-11] MEDS: METOCLOPRAMIDE 5 MG/ML, 2ML IVPush PRN (02:01)
[2019-07-11 07:17] LABS: CHLORIDE 107 mmol/L (98-107)
[2019-07-11 07:18] LABS: ANION GAP 6 mmol/L (5-15); CALCIUM 8.2 mg/dL (8.5-10.1); CREATININE 0.63 mg/dL (0.7-1.3)
[2019-07-11 07:19] VITALS: BP 98/62
[2019-07-11] MEDS: PANTOPROZOLE 40MG TABLET PO SCH (08:26)
[2019-07-11] MEDS: LACTOBACILLUS 1GM/ PACKET PO SCH (08:26)
[2019-07-11] MEDS: SENNA/DOCUSATE TABLET PO SCH (08:26)
[2019-07-11] MEDS: PANTOPRAZOLE 40 MG IV IVPush SCH ×2 (09:30→21:43)
[2019-07-11] MEDS ORDERED: SODIUM CHLORIDE 0.9% 1,000 ML IV SCH (11:30)
[2019-07-11] MEDS: SODIUM CHLORIDE 0.9% 1,000 ML IV SCH ×2 (11:35→21:43)
[2019-07-11 13:45] VITALS: BP 98/63
[2019-07-11 18:44] VITALS: BP 106/63
[2019-07-12 00:18] VITALS: BP 100/65
[2019-07-12 06:26] VITALS: BP 102/64
[2019-07-12] MEDS: LACTOBACILLUS 1GM/ PACKET PO SCH (09:00)
[2019-07-12] MEDS: SENNA/DOCUSATE TABLET PO SCH (09:00)
[2019-07-12] MEDS: SODIUM CHLORIDE 0.9% 1,000 ML IV SCH (09:05)
[2019-07-12] MEDS: PANTOPRAZOLE 40 MG IV IVPush SCH ×2 (09:08→19:40)
[2019-07-12 13:57] VITALS: BP 98/66
[2019-07-12] MEDS ORDERED: D5%-0.45NACL+KCL 20MEQ 1,000 ML IV SCH (18:30)
[2019-07-12 20:17] VITALS: BP 100/64
[2019-07-12] MEDS: POTASSIUM CHLORIDE 20 MEQ in SODIUM CHLORIDE 0.45% 1,000 ML IV SCH (20:26)
[2019-07-13 01:17] VITALS: BP 122/68
[2019-07-13] MEDS: POTASSIUM CHLORIDE 20 MEQ in SODIUM CHLORIDE 0.45% 1,000 ML IV SCH ×2 (07:37→16:47)
[2019-07-13 08:36] VITALS: BP 107/65
[2019-07-13] MEDS: LACTOBACILLUS 1GM/ PACKET PO SCH (08:49)
[2019-07-13] MEDS: SENNA/DOCUSATE TABLET PO SCH (08:49)
[2019-07-13] MEDS: PANTOPRAZOLE 40 MG IV IVPush SCH ×2 (09:58→21:17)
[2019-07-13 14:08] VITALS: BP 106/60
[2019-07-13 20:27] VITALS: BP 97/61
[2019-07-14] MEDS: POTASSIUM CHLORIDE 20 MEQ in SODIUM CHLORIDE 0.45% 1,000 ML IV SCH ×2 (03:00→17:21)
[2019-07-14 04:08] VITALS: BP 100/62
[2019-07-14] MEDS ORDERED: BUPIVACAINE/PF 0.5% ONE (06:10)
[2019-07-14] MEDS ORDERED: BUPIVACAINE/PF-EPI 0.5% 1:200K ONE (06:10)
[2019-07-14] MEDS ORDERED: EPINEPHRINE 1 MG/ML, 1ML ONE (06:11)
[2019-07-14] MEDS ORDERED: METHYLENE BLUE 10 MG/ML 10ML ONE (06:11)
[2019-07-14] MEDS ORDERED: BUPIVACAINE/PF 0.25% ONE (06:11)
[2019-07-14] MEDS ORDERED: MIDAZOLAM 1 MG/ML, 2ML ONE (06:45)
[2019-07-14] MEDS ORDERED: FENTANYL PF 250 MCG/5ML ONE (06:45)
[2019-07-14] MEDS ORDERED: PHENYLEPHRINE 10 MG/ML ONE (07:02)
[2019-07-14] MEDS ORDERED: LIDOCAINE-MPF 2% ,5ML ONE (08:12)
[2019-07-14] MEDS ORDERED: DEXAMETHASONE 4 MG/ML, 1ML ONE (08:12)
[2019-07-14] MEDS ORDERED: ROCURONIUM 10MG/ML,5ML ONE (08:12)
[2019-07-14] MEDS ORDERED: PROPOFOL 10 MG/ML, 20ML ONE (08:12)
[2019-07-14] MEDS ORDERED: ONDANSETRON 2MG/ML, 2ML ONE (08:12)
[2019-07-14] MEDS ORDERED: NEOSTIGMINE 1 MG/ML, 10ML ONE (08:12)
[2019-07-14] MEDS ORDERED: GLYCOPYRROLATE 0.2MG/1ML, 5ML ONE (08:12)
[2019-07-14] MEDS ORDERED: SUCCINYLCHOLINE 20 MG/ML, 10ML ONE (08:12)
[2019-07-14] MEDS ORDERED: CEFOTETAN PMX 1GM/50ML 50 ML ONE (08:13)
[2019-07-14] MEDS: LACTOBACILLUS 1GM/ PACKET PO SCH (09:00)
[2019-07-14] MEDS: SENNA/DOCUSATE TABLET PO SCH (09:00)
[2019-07-14] MEDS ORDERED: FENTANYL PF 100 MCG/2ML ONE (09:17)
[2019-07-14] MEDS ORDERED: OXYcodone 5 MG/5 ML ORAL.SOL UDC ONE (09:17)
[2019-07-14] MEDS: FENTANYL PF 100 MCG/2ML IV PRN ×2 (09:20→09:26)
[2019-07-14] MEDS ORDERED: hydrALAzine 20 MG/ML, 1ML IV PRN (09:30)
[2019-07-14] MEDS ORDERED: MEPERIDINE/PF 25MG/ML,1ML IVPush PRN (09:30)
[2019-07-14] MEDS ORDERED: PROMETHAZINE 25 MG/ML, 1ML IV PRN (09:30)
[2019-07-14] MEDS ORDERED: OXYcodone 5 MG/5 ML ORAL.SOL UDC PO PRN (09:30)
[2019-07-14] MEDS ORDERED: MIDAZOLAM 1 MG/ML, 2ML IV PRN (09:30)
[2019-07-14] MEDS ORDERED: EPHEDRINE 50 MG/ML, 1ML IVPush PRN (09:30)
[2019-07-14] MEDS ORDERED: ALBUTEROL/IPRATROPIUM 2.5MG/0.5MG, 3 ML NPPB PRN (09:30)
[2019-07-14] MEDS: PANTOPRAZOLE 40 MG IV IVPush SCH ×2 (09:30→22:30)
[2019-07-14] MEDS ORDERED: HYDROmorphone 1 MG/ML, 1ML INJ ONE ×2 (09:33→09:53)
[2019-07-14] MEDS: HYDROmorphone 2 MG/ML, 1ML IVPush PRN ×4 (09:42→10:05)
[2019-07-14 10:53] VITALS: BP 98/54
[2019-07-14 12:35] VITALS: BP 116/67
[2019-07-14 20:18] VITALS: BP 96/59
[2019-07-14] MEDS ORDERED: morphine SULFATE 10 MG/ML, 1ML ONE (22:27)
[2019-07-14] MEDS ORDERED: MORPHINE SULFATE 4 MG/ML, 1ML IVPush PRN (22:30)
[2019-07-14 23:43] VITALS: BP 96/57
[2019-07-15] MEDS: POTASSIUM CHLORIDE 20 MEQ in SODIUM CHLORIDE 0.45% 1,000 ML IV SCH ×2 (03:15→14:18)
[2019-07-15 03:45] VITALS: BP 103/65
[2019-07-15 06:40] VITALS: BP 100/61
[2019-07-15] MEDS: LACTOBACILLUS 1GM/ PACKET PO SCH (07:45)
[2019-07-15] MEDS: SENNA/DOCUSATE TABLET PO SCH (07:46)
[2019-07-15] MEDS: KETOROLAC 30 MG/1 ML IVPush SCH ×3 (09:57→22:08)
[2019-07-15] MEDS: PANTOPRAZOLE 40 MG IV IVPush SCH ×2 (09:58→22:08)
[2019-07-15] MEDS: ACETAMINOPHEN 650 MG/20.3 ML UDC PO SCH ×2 (10:51→17:33)
[2019-07-15 12:09] LABS: BASOPHILS # (AUTO) 0.03 x10^3/uL (0-0.1); BASOPHILS % (AUTO) 1 % (0-1); EOSINOPHILS # (AUTO) 0.11 x10^3/uL (0-0.4); EOSINOPHILS % (AUTO) 2 % (1-7); LYMPHOCYTES # (AUTO) 1.85 x10^3/uL (1-3.4); LYMPHOCYTES % (AUTO) 27 % (22-44); MD NO; MEAN CORPUSCULAR HEMOGLOBIN 32.4 pg (27.5-34.5); MEAN CORPUSCULAR HGB CONC 34.1 g/dL (33.2-36.2); MEAN CORPUSCULAR VOLUME 94.9 fL (81-97); MONOCYTES # (AUTO) 0.63 x10^3/uL (0.2-0.8); MONOCYTES % (AUTO) 9 % (2-9); NEUTROPHILS # (AUTO) 4.14 x10^3/uL (1.8-6.8); NEUTROPHILS % (AUTO) 61 % (42-75); PLATELET COUNT 275 x10^3/uL (130-400); RED BLOOD COUNT 3.32 x10^6/uL (4.38-5.82); RED CELL DISTRIBUTION WIDTH 14.7 % (9.4-14.8)
[2019-07-15 12:21] LABS: ANION GAP 9 mmol/L (5-15); CALCIUM 8.5 mg/dL (8.5-10.1); CHLORIDE 101 mmol/L (98-107)
[2019-07-15 12:42] VITALS: BP 93/55
[2019-07-15 19:51] VITALS: BP 96/57
[2019-07-16 00:35] VITALS: BP 107/65
[2019-07-16] MEDS: ACETAMINOPHEN 650 MG/20.3 ML UDC PO SCH ×3 (01:20→13:45)
[2019-07-16] MEDS: KETOROLAC 30 MG/1 ML IVPush SCH ×4 (05:05→23:00)
[2019-07-16 06:29] VITALS: BP 117/69
[2019-07-16 07:16] LABS: BASOPHILS # (AUTO) 0.04 x10^3/uL (0-0.1); BASOPHILS % (AUTO) 1 % (0-1); EOSINOPHILS # (AUTO) 0.12 x10^3/uL (0-0.4); EOSINOPHILS % (AUTO) 2 % (1-7); LYMPHOCYTES # (AUTO) 1.78 x10^3/uL (1-3.4); LYMPHOCYTES % (AUTO) 32 % (22-44); MD NO; MEAN CORPUSCULAR HEMOGLOBIN 31.7 pg (27.5-34.5); MEAN CORPUSCULAR HGB CONC 33.2 g/dL (33.2-36.2); MEAN CORPUSCULAR VOLUME 95.4 fL (81-97); MONOCYTES # (AUTO) 0.47 x10^3/uL (0.2-0.8); MONOCYTES % (AUTO) 8 % (2-9); NEUTROPHILS # (AUTO) 3.24 x10^3/uL (1.8-6.8); NEUTROPHILS % (AUTO) 57 % (42-75); PLATELET COUNT 244 x10^3/uL (130-400); RED BLOOD COUNT 3.15 x10^6/uL (4.38-5.82); RED CELL DISTRIBUTION WIDTH 14.9 % (9.4-14.8)
[2019-07-16 07:19] LABS: ANION GAP 8 mmol/L (5-15); CALCIUM 8.6 mg/dL (8.5-10.1); CHLORIDE 104 mmol/L (98-107)
[2019-07-16 07:20] LABS: CREATININE 0.63 mg/dL (0.7-1.3)
[2019-07-16] MEDS: LACTOBACILLUS 1GM/ PACKET PO SCH (07:48)
[2019-07-16] MEDS: SENNA/DOCUSATE TABLET PO SCH (07:48)
[2019-07-16] MEDS: PANTOPRAZOLE 40 MG IV IVPush SCH ×2 (08:56→21:47)
[2019-07-16] MEDS: POTASSIUM CHLORIDE 20 MEQ in SODIUM CHLORIDE 0.45% 1,000 ML IV SCH ×3 (12:13→22:00)
[2019-07-16 12:31] VITALS: BP 102/56
[2019-07-16 12:37] VITALS: BP 105/65
[2019-07-16 20:32] VITALS: BP 112/66
[2019-07-16] MEDS: ACETAMINOPHEN 325 MG TABLET PO SCH (21:47)
[2019-07-17] MEDS: ACETAMINOPHEN 325 MG TABLET PO SCH ×3 (02:00→14:05)
[2019-07-17 02:07] VITALS: BP 100/64
[2019-07-17] MEDS: KETOROLAC 30 MG/1 ML IVPush SCH ×3 (05:00→16:37)
[2019-07-17] MEDS: POTASSIUM CHLORIDE 20 MEQ in SODIUM CHLORIDE 0.45% 1,000 ML IV SCH ×2 (06:00→16:00)
[2019-07-17 06:42] VITALS: BP 109/65
[2019-07-17] MEDS: PANTOPRAZOLE 40 MG IV IVPush SCH (08:03)
[2019-07-17] MEDS: LACTOBACILLUS 1GM/ PACKET PO SCH (08:03)
[2019-07-17] MEDS: SENNA/DOCUSATE TABLET PO SCH (08:03)
[2019-07-17 13:00] VITALS: BP 97/65
[2019-07-17] MEDS ORDERED: ACET325T26 PO (15:10)
[2019-07-17 15:58] VITALS: BP 92/60
== END 2019-07-17 17:15 | disposition home or self-care (01) | DRG 981 ==
LOC: ED 18:27 → EDIP 18:44 → 3N 19:50 → 4NE 07-13 23:47 → DCLOUNGE 07-17 17:06
PROVIDERS: ADMIT Hospitalist; ATTEND Hospitalist
PROC: 0DN84ZZ Release Small Intestine, Percutaneous Endoscopic Approach (ICD-10-PCS; 2019-07-14)
PROC: 0DS84ZZ Reposition Small Intestine, Percutaneous Endoscopic Approach (ICD-10-PCS; 2019-07-14)
PROC: 0DTJ4ZZ Resection of Appendix, Percutaneous Endoscopic Approach (ICD-10-PCS; principal; 2019-07-14 07:00)
DX: E11.43 Type 2 diabetes mellitus with diabetic autonomic (poly)neuropathy (principal); N17.0 Acute kidney failure with tubular necrosis; E43 Unspecified severe protein-calorie malnutrition; K31.1 Adult hypertrophic pyloric stenosis; K35.80 Unspecified acute appendicitis; Q43.3 Congenital malformations of intestinal fixation; L02.01 Cutaneous abscess of face; Z68.1 Body mass index [BMI] 19.9 or less, adult; E86.0 Dehydration; E87.6 Hypokalemia; K04.7 Periapical abscess without sinus; K31.84 Gastroparesis; K21.9 Gastro-esophageal reflux disease without esophagitis; Z79.4 Long term (current) use of insulin; Z87.11 Personal history of peptic ulcer disease; Z87.891 Personal history of nicotine dependence; Z91.041 Radiographic dye allergy status; Z79.899 Other long term (current) drug therapy; Z90.49 Acquired absence of other specified parts of digestive tract
CPT/HCPCS: 36415; 74250; 96374; 96375; 99285; J3490; 71045; 74177; 80048; 80053; 82962; 83690; 83735; 85025; 88304; G0378; J0171; J1100; J1170; J1885; J2250; J2405; J2704; J2710; J3010; J3480; Q9967; C9113; J0330; J2270; J2370; J2765; J7030; Q0163; Q9968

== ENCOUNTER 2019-07-26 20:31 | Inpatient (IN) | payer MEDICAID ==
[~2019-07-26] VITALS: Ht 170.2 cm; Wt 57.2 kg
[~2019-07-26 20:31] MED LIST changes: +ACET325T26 PO
--- NOTE | 2019-07-26 20:53 | NUR ---
PT STATES THAT HE HAD SURGERY 2 WEEKS AGO ON ABD, BEGAN HAVING DIARRHEA SUNDAY NIGHT AND STATES THAT IT IS BLACK AND HAS BEEN HAVING ABD PAIN SINCE SUNDAY MORNING. Pt is tender to abd palpation. Pt has bowel sounds present. Pt is slightly appears pale but per patient that is normal tone for him. Pt connected to monitors and call light in reach.
[2019-07-26] MEDS ORDERED: MAALOX/HYOSCYAMINE/LIDOCAINE 45 ML BTL PO ONE (21:00)
[2019-07-26] MEDS ORDERED: ONDANSETRON 2MG/ML, 2ML IVPush ONE ×2 (21:00→22:30)
[2019-07-26] MEDS ORDERED: SODIUM CHLORIDE 0.9% 1,000ML IVBOLUS ONE (21:00)
[2019-07-26] MEDS ORDERED: SODIUM CHLORIDE FLUSH 10ML SYR IVF ONE (21:00)
[2019-07-26] MEDS ORDERED: ONDANSETRON 2MG/ML, 2ML ONE ×2 (21:10→22:09)
[2019-07-26] MEDS ORDERED: MAALOX/HYOSCYAMINE/LIDOCAINE 45 ML BTL ONE (21:10)
[2019-07-26] MEDS ORDERED: MORPHINE SULFATE 4 MG/ML, 1ML ONE (21:27)
[2019-07-26] MEDS: MORPHINE SULFATE 4 MG/ML, 1ML IVPush PRN (21:29)
--- NOTE | 2019-07-26 21:31 | NUR ---
Pt has very loud bowel sounds, gi cocktail held.
[2019-07-26 21:48] LABS: BASOPHILS # (AUTO) 0.02 x10^3/uL (0-0.1); BASOPHILS % (AUTO) 0 % (0-1); EOSINOPHILS # (AUTO) 0.14 x10^3/uL (0-0.4); EOSINOPHILS % (AUTO) 2 % (1-7); LYMPHOCYTES # (AUTO) 1.41 x10^3/uL (1-3.4); LYMPHOCYTES % (AUTO) 22 % (22-44); MD NO; MEAN CORPUSCULAR HEMOGLOBIN 31.8 pg (27.5-34.5); MEAN CORPUSCULAR HGB CONC 33.6 g/dL (33.2-36.2); MEAN CORPUSCULAR VOLUME 94.8 fL (81-97); MEAN PLATELET VOLUME 6.8 fL (7.4-10.4); MONOCYTES # (AUTO) 0.39 x10^3/uL (0.2-0.8); MONOCYTES % (AUTO) 6 % (2-9); NEUTROPHILS # (AUTO) 4.57 x10^3/uL (1.8-6.8); NEUTROPHILS % (AUTO) 70 % (42-75); PLATELET COUNT 386 x10^3/uL (130-400); RED CELL DISTRIBUTION WIDTH 14.5 % (9.4-14.8)
[2019-07-26 21:54] LABS: PROTHROMBIN TIME 10.6 Seconds (9.6-11.5)
[2019-07-26 21:56] LABS: ALANINE AMINOTRANSFERASE 10 U/L (12-78); ALBUMIN 3.6 g/dL (3.4-5.0); ANION GAP 6 mmol/L (5-15); CALCIUM 9.2 mg/dL (8.5-10.1); CHLORIDE 98 mmol/L (98-107); CREATININE 0.88 mg/dL (0.7-1.3)
[2019-07-26 21:59] LABS: ALKALINE PHOSPHATASE 67 U/L (45-117); BILIRUBIN,TOTAL 0.4 mg/dL (0.2-1.0); TOTAL PROTEIN 7.5 g/dL (6.4-8.2)
[2019-07-26] MEDS ORDERED: DIPHENHYDRAMINE 50 MG/ML, 1ML ONE (22:46)
--- NOTE | 2019-07-26 22:50 | NUR ---
Pt medicated with benadryl.
[2019-07-26] MEDS ORDERED: DIPHENHYDRAMINE 50 MG/ML, 1ML IVPush ONE (23:00)
[2019-07-26] MEDS ORDERED: OMNIPAQUE 350 MG/ML, 100ML BOTTLE ONE (23:10)
[2019-07-26] MEDS ORDERED: PANTOPRAZOLE 80 MG in SODIUM CHLORIDE 0.9% 100 ML IV SCH (23:51)
[2019-07-26] MEDS ORDERED: PANTOPRAZOLE 80 MG in SODIUM CHLORIDE 0.9% 50 ML IVPB ONE (23:51)
--- NOTE | 2019-07-26 23:59 | NUR ---
NG TUBE INSERTED WITHOUT DIFFICULTY.
[2019-07-27] MEDS ORDERED: MORPHINE SULFATE 4 MG/ML, 1ML ONE (00:10)
[2019-07-27] MEDS: MORPHINE SULFATE 4 MG/ML, 1ML IVPush PRN (00:13)
--- NOTE | 2019-07-27 00:13 | NUR ---
PT MEDICATED PER EMAR, PT REPORT CALLED TO REGINO THAYER
[2019-07-27] MEDS ORDERED: PANTOPRAZOLE 80 MG in SODIUM CHLORIDE 0.9% 100 ML IV SCH (00:30)
[2019-07-27] MEDS ORDERED: ONDANSETRON 2MG/ML, 2ML IVPush PRN (00:30)
[2019-07-27] MEDS ORDERED: ENALAPRILAT 1.25 MG/ML, 2ML IVPush PRN (00:30)
[2019-07-27] MEDS ORDERED: LIDODERM 5% PATCH TD PRN (00:30)
[2019-07-27] MEDS ORDERED: LORazepam 2 MG/ML, 1ML IVPush PRN (00:30)
[2019-07-27] MEDS: SODIUM CHLORIDE 0.9% 1,000 ML IV SCH ×2 (00:49→21:26)
[2019-07-27 01:05] VITALS: BP 106/72
[2019-07-27] MEDS: morphine SULFATE 10 MG/ML, 1ML IVPush PRN ×5 (04:37→23:48)
[2019-07-27 07:00] VITALS: BP 97/60
[2019-07-27] MEDS ORDERED: DIPHENHYDRAMINE 50 MG/ML, 1ML IVPush ONE (08:30)
[2019-07-27] MEDS ORDERED: DEXTROSE 4 GM TAB.CHEW PO PRN (10:00)
[2019-07-27] MEDS ORDERED: GLUCAGON 1 MG IM PRN (10:00)
[2019-07-27] MEDS ORDERED: DEXTROSE 50%, 50ML SYRINGE IVPush PRN (10:00)
[2019-07-27] MEDS: INSULIN LISPRO 100 UNITS/ML, PEN SQ-INSULIN SCH ×3 (11:00→21:00)
[2019-07-27 14:14] VITALS: BP 109/72
[2019-07-27 19:14] VITALS: BP 109/72
[2019-07-27] MEDS: SODIUM CHLORIDE FLUSH 10ML SYR IVF SCH (21:00)
[2019-07-27] MEDS: PANTOPRAZOLE 40 MG IV IVPush SCH (21:18)
[2019-07-28 02:35] VITALS: BP 121/74
[2019-07-28] MEDS: SODIUM CHLORIDE 0.9% 1,000 ML IV SCH (05:25)
[2019-07-28] MEDS: morphine SULFATE 10 MG/ML, 1ML IVPush PRN ×3 (05:25→21:49)
[2019-07-28 05:28] LABS: BASOPHILS # (AUTO) 0.03 x10^3/uL (0-0.1); BASOPHILS % (AUTO) 1 % (0-1); EOSINOPHILS # (AUTO) 0.25 x10^3/uL (0-0.4); EOSINOPHILS % (AUTO) 4 % (1-7); LYMPHOCYTES # (AUTO) 1.19 x10^3/uL (1-3.4); LYMPHOCYTES % (AUTO) 21 % (22-44); MD NO; MEAN CORPUSCULAR HEMOGLOBIN 31.9 pg (27.5-34.5); MEAN CORPUSCULAR VOLUME 96.5 fL (81-97); MEAN PLATELET VOLUME 6.7 fL (7.4-10.4); MONOCYTES # (AUTO) 0.36 x10^3/uL (0.2-0.8); MONOCYTES % (AUTO) 6 % (2-9); NEUTROPHILS # (AUTO) 3.81 x10^3/uL (1.8-6.8); NEUTROPHILS % (AUTO) 68 % (42-75); PLATELET COUNT 330 x10^3/uL (130-400); RED BLOOD COUNT 3.37 x10^6/uL (4.38-5.82); RED CELL DISTRIBUTION WIDTH 14.3 % (9.4-14.8)
[2019-07-28 05:36] LABS: ANION GAP 7 mmol/L (5-15); CALCIUM 8.8 mg/dL (8.5-10.1); CHLORIDE 106 mmol/L (98-107)
[2019-07-28 05:37] LABS: CREATININE 0.68 mg/dL (0.7-1.3)
[2019-07-28] MEDS: INSULIN LISPRO 100 UNITS/ML, PEN SQ-INSULIN SCH ×4 (05:58→21:00)
[2019-07-28 07:08] VITALS: BP 99/65
[2019-07-28] MEDS: PANTOPRAZOLE 40 MG IV IVPush SCH ×2 (08:17→20:31)
[2019-07-28] MEDS: SODIUM CHLORIDE FLUSH 10ML SYR IVF SCH ×2 (08:18→20:36)
[2019-07-28] MEDS: D5%-0.9% NACL 1,000 ML IV SCH (10:42)
[2019-07-28 13:52] VITALS: BP 109/70
[2019-07-28 14:03] VITALS: BP 99/66
[2019-07-28 18:43] VITALS: BP 97/70
[2019-07-29] MEDS: D5%-0.9% NACL 1,000 ML IV SCH ×2 (00:16→18:36)
[2019-07-29 01:17] VITALS: BP 101/59
[2019-07-29 05:13] LABS: ANION GAP 8 mmol/L (5-15); CALCIUM 8.5 mg/dL (8.5-10.1); CHLORIDE 104 mmol/L (98-107); CREATININE 0.63 mg/dL (0.7-1.3); MEAN CORPUSCULAR HEMOGLOBIN 32.1 pg (27.5-34.5); MEAN CORPUSCULAR HGB CONC 33.9 g/dL (33.2-36.2); MEAN CORPUSCULAR VOLUME 94.8 fL (81-97); MEAN PLATELET VOLUME 6.9 fL (7.4-10.4); PLATELET COUNT 301 x10^3/uL (130-400); RED CELL DISTRIBUTION WIDTH 14.2 % (9.4-14.8)
[2019-07-29 06:00] LABS: BASOPHILS # (AUTO) 0.01 x10^3/uL (0-0.1); BASOPHILS % (AUTO) 1 % (0-1); EOSINOPHILS # (AUTO) 0.09 x10^3/uL (0-0.4); EOSINOPHILS % (AUTO) 4 % (1-7); LYMPHOCYTES # (AUTO) 0.65 x10^3/uL (1-3.4); LYMPHOCYTES % (AUTO) 25 % (22-44); MD SCAN; MONOCYTES # (AUTO) 0.23 x10^3/uL (0.2-0.8); MONOCYTES % (AUTO) 9 % (2-9); NEUTROPHILS # (AUTO) 1.58 x10^3/uL (1.8-6.8); NEUTROPHILS % (AUTO) 62 % (42-75)
[2019-07-29 06:54] VITALS: BP 100/63
[2019-07-29] MEDS: INSULIN LISPRO 100 UNITS/ML, PEN SQ-INSULIN SCH ×4 (07:00→21:24)
[2019-07-29] MEDS: PANTOPRAZOLE 40 MG IV IVPush SCH ×2 (08:35→21:23)
[2019-07-29] MEDS: SODIUM CHLORIDE FLUSH 10ML SYR IVF SCH ×2 (08:36→21:24)
[2019-07-29 14:25] VITALS: BP 96/63
[2019-07-29 18:38] VITALS: BP 102/60
[2019-07-30 01:36] VITALS: BP 96/69
[2019-07-30] MEDS: INSULIN LISPRO 100 UNITS/ML, PEN SQ-INSULIN SCH ×4 (07:00→21:00)
[2019-07-30 07:15] VITALS: BP 101/65
[2019-07-30] MEDS: SODIUM CHLORIDE FLUSH 10ML SYR IVF SCH ×2 (07:41→21:23)
[2019-07-30] MEDS: PANTOPRAZOLE 40 MG IV IVPush SCH ×2 (08:31→21:22)
[2019-07-30] MEDS: D5%-0.9% NACL 1,000 ML IV SCH ×2 (08:31→20:48)
[2019-07-30 13:50] VITALS: BP 113/71
[2019-07-30] MEDS: morphine SULFATE 10 MG/ML, 1ML IVPush PRN ×2 (16:47→21:35)
[2019-07-30 18:32] VITALS: BP 107/65
[2019-07-30] MEDS: ACETAMINOPHEN 325 MG TABLET PO PRN (21:35)
[2019-07-31 00:26] VITALS: BP 103/64
[2019-07-31] MEDS: morphine SULFATE 10 MG/ML, 1ML IVPush PRN ×2 (00:38→06:21)
[2019-07-31] MEDS: INSULIN LISPRO 100 UNITS/ML, PEN SQ-INSULIN SCH (06:21)
[2019-07-31 06:25] VITALS: BP 100/67
[2019-07-31] MEDS: ACETAMINOPHEN 325 MG TABLET PO PRN (09:33)
[2019-07-31] MEDS: PANTOPRAZOLE 40 MG IV IVPush SCH (09:33)
[2019-07-31] MEDS: SODIUM CHLORIDE FLUSH 10ML SYR IVF SCH (09:35)
== END 2019-07-31 10:51 | disposition home or self-care (01) | DRG 389 ==
LOC: ED 21:45 → EDIP 07-27 00:35 → 4NE 07-27 00:36
PROVIDERS: ADMIT Family Medicine; ATTEND Family Medicine
DX: K56.600 Partial intestinal obstruction, unspecified as to cause (principal); E87.1 Hypo-osmolality and hyponatremia; R18.8 Other ascites; K92.1 Melena; D64.9 Anemia, unspecified; E11.43 Type 2 diabetes mellitus with diabetic autonomic (poly)neuropathy; Z79.4 Long term (current) use of insulin; Z87.11 Personal history of peptic ulcer disease; Z87.891 Personal history of nicotine dependence; Z87.19 Personal history of other diseases of the digestive system
CPT/HCPCS: 36415; 74018; 74250; 96374; 96376; 99285; J7042; 74177; 80048; 80053; 82947; 82962; 83690; 85025; 85610; 85730; 86850; 86900; G0378; J2405; Q9967; C9113; J1200; J1815; J2270; J7030

== ENCOUNTER 2019-08-01 14:54 | Inpatient (IN) | payer MEDICAID ==
[~2019-08-01] VITALS: Ht 167.6 cm; Wt 56.4 kg
[2019-08-01] MEDS ORDERED: PANTOPRAZOLE 80 MG in SODIUM CHLORIDE 0.9% 100 ML IV SCH (15:09)
[2019-08-01] MEDS ORDERED: PANTOPRAZOLE 80 MG in SODIUM CHLORIDE 0.9% 50 ML IVPB ONE (15:09)
[2019-08-01] MEDS: SODIUM CHLORIDE 0.9% 1,000 ML IV ONE ×2 (15:09→15:33)
--- NOTE | 2019-08-01 15:12 | NUR ---
PT HAS CO OF VOMITING BLOOD AND ABDOMINAL PAIN. PT WAS RECENTLY DC FROM HOSPITAL FOR SMALL BOWEL OBSTRUCTION W SHAYLA PROCEDURE, PT DESCRIBES EMESIS DARK RED. 3 EPISODES. BM ARE NORMAL. LAST BM YESTERDAY. BM SOUNDS NORMAL. DENIES PASSING GAS TODAY MD AT BEDSIDE.
[2019-08-01] MEDS ORDERED: SODIUM CHLORIDE 0.9% 1,000ML IVBOLUS ONE (15:30)
[2019-08-01] MEDS ORDERED: SODIUM CHLORIDE FLUSH 10ML SYR IVF ONE (15:30)
--- NOTE | 2019-08-01 15:30 | NUR ---
IV ESTABLISHED, LABS DRAWN, FLUIDS INFUSING, PIG HANDLER APPLIED. VSS. PT IS NOT IN DISTRESS
[2019-08-01 15:53] LABS: INTERNATIONAL NORMALIZED RATIO 1.04 (0.93-1.1)
[2019-08-01 15:56] LABS: BASOPHILS # (AUTO) 0.02 x10^3/uL (0-0.1); BASOPHILS % (AUTO) 0 % (0-1); EOSINOPHILS # (AUTO) 0.11 x10^3/uL (0-0.4); EOSINOPHILS % (AUTO) 2 % (1-7); LYMPHOCYTES # (AUTO) 1.02 x10^3/uL (1-3.4); LYMPHOCYTES % (AUTO) 18 % (22-44); MD NO; MEAN CORPUSCULAR HEMOGLOBIN 31.9 pg (27.5-34.5); MEAN CORPUSCULAR HGB CONC 33.3 g/dL (33.2-36.2); MEAN CORPUSCULAR VOLUME 95.8 fL (81-97); MEAN PLATELET VOLUME 6.4 fL (7.4-10.4); MONOCYTES # (AUTO) 0.48 x10^3/uL (0.2-0.8); MONOCYTES % (AUTO) 9 % (2-9); NEUTROPHILS # (AUTO) 3.93 x10^3/uL (1.8-6.8); NEUTROPHILS % (AUTO) 71 % (42-75); PLATELET COUNT 383 x10^3/uL (130-400); RED BLOOD COUNT 3.68 x10^6/uL (4.38-5.82); RED CELL DISTRIBUTION WIDTH 14.1 % (9.4-14.8)
--- NOTE | 2019-08-01 16:08 | NUR ---
ASSUMED CARE OF PATIENT. REPORT GIVEN FROM FALCA PEREZ
--- NOTE | 2019-08-01 16:32 | NUR ---
DR HOGAN HAS UPDATED PATIENT.
--- NOTE | 2019-08-01 16:41 | NUR ---
Elizabeth anderson in [facility] - 08/01/19 at 1643 by JAGJIT PT REPORTS HE HAS A RIDE HOME FOR DISCHARGE.
[2019-08-01] MEDS ORDERED: METOCLOPRAMIDE 5 MG/ML, 2ML ONE (16:51)
[2019-08-01 16:59] LABS: ALANINE AMINOTRANSFERASE 11 U/L (12-78); ALBUMIN 3.3 g/dL (3.4-5.0); ANION GAP 12 mmol/L (5-15); CALCIUM 8.9 mg/dL (8.5-10.1); CHLORIDE 102 mmol/L (98-107); CREATININE 0.78 mg/dL (0.7-1.3)
[2019-08-01] MEDS ORDERED: METOCLOPRAMIDE 5 MG/ML, 2ML IVPush ONE (17:00)
[2019-08-01 17:01] LABS: ALKALINE PHOSPHATASE 66 U/L (45-117); BILIRUBIN,TOTAL 0.9 mg/dL (0.2-1.0); TOTAL PROTEIN 6.6 g/dL (6.4-8.2)
--- NOTE | 2019-08-01 17:04 | NUR ---
DR HOGAN HAS UPDATED PATIENT. AWARE OF VS. PT TO BE AN ADMIT.
[2019-08-01] MEDS ORDERED: METOCLOPRAMIDE 5 MG/ML, 2ML IVPush SCH (17:30)
[2019-08-01] MEDS ORDERED: POTASSIUM CHLORIDE 40 MEQ in SODIUM CHLORIDE 0.9% 500 ML IV ONE (17:30)
[2019-08-01] MEDS ORDERED: ACETAMINOPHEN 325 MG TABLET PO PRN (17:30)
[2019-08-01] MEDS ORDERED: hydrALAzine 20 MG/ML, 1ML IVPush PRN (17:30)
[2019-08-01] MEDS ORDERED: BACLOFEN 10 MG TABLET PO PRN (17:30)
[2019-08-01] MEDS ORDERED: ONDANSETRON 2MG/ML, 2ML IVPush PRN (17:30)
[2019-08-01] MEDS ORDERED: morphine SULFATE 10 MG/ML, 1ML IVPush PRN (17:30)
--- NOTE | 2019-08-01 17:51 | NUR ---
REPORT CALLED INTO JOYCE, RN
[2019-08-01] MEDS ORDERED: DEXTROSE 4 GM TAB.CHEW PO PRN (18:00)
[2019-08-01] MEDS ORDERED: GLUCAGON 1 MG IM PRN (18:00)
[2019-08-01] MEDS ORDERED: DEXTROSE 50%, 50ML SYRINGE IVPush PRN (18:00)
[2019-08-01 19:19] VITALS: BP 94/63
[2019-08-01] MEDS: INSULIN LISPRO 100 UNITS/ML, PEN SQ-INSULIN SCH (21:00)
[2019-08-01] MEDS ORDERED: D5%-0.45NACL+KCL 20MEQ 1,000 ML IV SCH (21:00)
[2019-08-01] MEDS: SODIUM CHLORIDE FLUSH 10ML SYR IVF SCH (21:00)
[2019-08-01] MEDS: NS + 20MEQ KCL 1,000 ML IV SCH (21:10)
[2019-08-01 21:57] VITALS: BP 94/63
[2019-08-02 00:30] VITALS: BP 109/65
[2019-08-02 04:16] LABS: BASOPHILS # (AUTO) 0.02 x10^3/uL (0-0.1); BASOPHILS % (AUTO) 0 % (0-1); EOSINOPHILS # (AUTO) 0.11 x10^3/uL (0-0.4); EOSINOPHILS % (AUTO) 2 % (1-7); LYMPHOCYTES # (AUTO) 1.55 x10^3/uL (1-3.4); LYMPHOCYTES % (AUTO) 32 % (22-44); MD NO; MEAN CORPUSCULAR HEMOGLOBIN 31.6 pg (27.5-34.5); MEAN CORPUSCULAR HGB CONC 33.3 g/dL (33.2-36.2); MEAN CORPUSCULAR VOLUME 95.1 fL (81-97); MEAN PLATELET VOLUME 6.5 fL (7.4-10.4); MONOCYTES # (AUTO) 0.57 x10^3/uL (0.2-0.8); MONOCYTES % (AUTO) 12 % (2-9); NEUTROPHILS # (AUTO) 2.55 x10^3/uL (1.8-6.8); NEUTROPHILS % (AUTO) 53 % (42-75); PLATELET COUNT 327 x10^3/uL (130-400); RED BLOOD COUNT 3.26 x10^6/uL (4.38-5.82); RED CELL DISTRIBUTION WIDTH 14.3 % (9.4-14.8)
[2019-08-02 04:37] LABS: ANION GAP 7 mmol/L (5-15); CALCIUM 8.6 mg/dL (8.5-10.1); CHLORIDE 108 mmol/L (98-107); CREATININE 0.59 mg/dL (0.7-1.3)
[2019-08-02] MEDS: METOCLOPRAMIDE 5 MG/ML, 2ML IVPush SCH ×3 (05:55→20:21)
[2019-08-02] MEDS ORDERED: MAGNESIUM SULFATE PMX 2GM/50ML 50 ML IV ONE ×2 (07:00→08:00)
[2019-08-02] MEDS ORDERED: POTASSIUM CHLORIDE 10% 40 MEQ/30 ML UDC PO ONE (07:00)
[2019-08-02 07:09] VITALS: BP 96/58
[2019-08-02] MEDS: INSULIN LISPRO 100 UNITS/ML, PEN SQ-INSULIN SCH ×4 (07:17→19:48)
[2019-08-02] MEDS: SODIUM CHLORIDE FLUSH 10ML SYR IVF SCH (08:17)
[2019-08-02] MEDS: PANTOPRAZOLE 40 MG IV IVPush SCH ×2 (11:12→23:35)
[2019-08-02] MEDS: NS + 20MEQ KCL 1,000 ML IV SCH (11:12)
[2019-08-02] MEDS ORDERED: morphine SULFATE 10 MG/ML, 1ML IVPush PRN (11:30)
[2019-08-02 12:11] VITALS: BP 92/55
[2019-08-02 18:37] VITALS: BP 96/59
[2019-08-03 00:20] VITALS: BP 109/66
[2019-08-03] MEDS: NS + 20MEQ KCL 1,000 ML IV SCH (00:42)
[2019-08-03 02:26] LABS: ALANINE AMINOTRANSFERASE 10 U/L (12-78); ANION GAP 8 mmol/L (5-15); CALCIUM 8.7 mg/dL (8.5-10.1); CHLORIDE 109 mmol/L (98-107); CREATININE 0.56 mg/dL (0.7-1.3)
[2019-08-03 02:29] LABS: ALKALINE PHOSPHATASE 59 U/L (45-117); BILIRUBIN,TOTAL 0.5 mg/dL (0.2-1.0); TOTAL PROTEIN 6.8 g/dL (6.4-8.2)
[2019-08-03 02:30] LABS: BASOPHILS # (AUTO) 0.03 x10^3/uL (0-0.1); BASOPHILS % (AUTO) 1 % (0-1); EOSINOPHILS # (AUTO) 0.11 x10^3/uL (0-0.4); EOSINOPHILS % (AUTO) 2 % (1-7); LYMPHOCYTES # (AUTO) 1.66 x10^3/uL (1-3.4); LYMPHOCYTES % (AUTO) 32 % (22-44); MD NO; MEAN CORPUSCULAR HEMOGLOBIN 31.3 pg (27.5-34.5); MEAN CORPUSCULAR HGB CONC 32.9 g/dL (33.2-36.2); MONOCYTES # (AUTO) 0.54 x10^3/uL (0.2-0.8); MONOCYTES % (AUTO) 10 % (2-9); NEUTROPHILS # (AUTO) 2.85 x10^3/uL (1.8-6.8); NEUTROPHILS % (AUTO) 55 % (42-75); PLATELET COUNT 335 x10^3/uL (130-400); RED BLOOD COUNT 3.31 x10^6/uL (4.38-5.82); RED CELL DISTRIBUTION WIDTH 13.9 % (9.4-14.8)
[2019-08-03] MEDS: METOCLOPRAMIDE 5 MG/ML, 2ML IVPush SCH ×4 (03:38→22:03)
[2019-08-03] MEDS: ONDANSETRON ODT 4 MG PO PRN ×4 (03:38→22:02)
[2019-08-03 06:54] VITALS: BP 103/63
[2019-08-03] MEDS: INSULIN LISPRO 100 UNITS/ML, PEN SQ-INSULIN SCH ×4 (07:00→22:02)
[2019-08-03] MEDS ORDERED: POTASSIUM CHLORIDE 20 MEQ TAB.ER.PRT PO ONE (08:00)
[2019-08-03] MEDS ORDERED: POTASSIUM CHLORIDE 20 MEQ TAB.ER.PRT ONE (08:16)
[2019-08-03] MEDS: PANTOPRAZOLE 40 MG IV IVPush SCH ×2 (12:02→23:36)
[2019-08-03 14:17] VITALS: BP 107/66
[2019-08-03 18:33] VITALS: BP 119/72
[2019-08-04 00:39] VITALS: BP 109/67
[2019-08-04] MEDS: METOCLOPRAMIDE 5 MG/ML, 2ML IVPush SCH ×2 (03:11→08:41)
[2019-08-04] MEDS: ONDANSETRON ODT 4 MG PO PRN ×2 (03:11→08:40)
[2019-08-04 06:14] LABS: BASOPHILS # (AUTO) 0.03 x10^3/uL (0-0.1); BASOPHILS % (AUTO) 1 % (0-1); EOSINOPHILS # (AUTO) 0.15 x10^3/uL (0-0.4); EOSINOPHILS % (AUTO) 4 % (1-7); LYMPHOCYTES # (AUTO) 1.97 x10^3/uL (1-3.4); LYMPHOCYTES % (AUTO) 50 % (22-44); MD NO; MEAN CORPUSCULAR HEMOGLOBIN 31.4 pg (27.5-34.5); MEAN CORPUSCULAR HGB CONC 33.2 g/dL (33.2-36.2); MEAN CORPUSCULAR VOLUME 94.5 fL (81-97); MEAN PLATELET VOLUME 7.1 fL (7.4-10.4); MONOCYTES # (AUTO) 0.36 x10^3/uL (0.2-0.8); MONOCYTES % (AUTO) 9 % (2-9); NEUTROPHILS % (AUTO) 36 % (42-75); PLATELET COUNT 352 x10^3/uL (130-400); RED BLOOD COUNT 3.06 x10^6/uL (4.38-5.82); RED CELL DISTRIBUTION WIDTH 13.9 % (9.4-14.8)
[2019-08-04 06:24] LABS: ANION GAP 6 mmol/L (5-15); CALCIUM 8.3 mg/dL (8.5-10.1); CHLORIDE 105 mmol/L (98-107)
[2019-08-04 06:25] LABS: CREATININE 0.57 mg/dL (0.7-1.3)
[2019-08-04] MEDS: INSULIN LISPRO 100 UNITS/ML, PEN SQ-INSULIN SCH ×2 (07:00→11:00)
[2019-08-04 07:05] VITALS: BP 100/63
[2019-08-04] MEDS: PANTOPRAZOLE 40 MG IV IVPush SCH (11:24)
[2019-08-04 12:54] VITALS: BP 99/63
[2019-08-04] MEDS ORDERED: PANT40TA5 PO (13:52)
[2019-08-04] MEDS ORDERED: ONDA4TAB13 PO (13:52)
== END 2019-08-04 15:43 | disposition home or self-care (01) | DRG 388 ==
LOC: ED 15:43 → EDIP 17:15 → SUATTDRO 17:20 → 4WST 18:32
PROVIDERS: ADMIT Hospitalist; ATTEND Internal Medicine
DX: K56.7 Ileus, unspecified (principal); K27.4 Chronic or unspecified peptic ulcer, site unspecified, with hemorrhage; E46 Unspecified protein-calorie malnutrition; K92.0 Hematemesis; E11.43 Type 2 diabetes mellitus with diabetic autonomic (poly)neuropathy; E83.42 Hypomagnesemia; K31.84 Gastroparesis; Z91.041 Radiographic dye allergy status; E87.6 Hypokalemia; Z80.0 Family history of malignant neoplasm of digestive organs; Z87.19 Personal history of other diseases of the digestive system; Z87.891 Personal history of nicotine dependence; Z68.20 Body mass index [BMI] 20.0-20.9, adult
CPT/HCPCS: 36415; 74022; 80048; 80053; 82962; 83605; 83690; 83735; 85014; 85018; 85025; 85610; 86850; 86900; 93005; 96365; 96375; G0378; J3480; Q0162; C9113; J1815; J2765; J3475; J7030; J7040

== ENCOUNTER 2019-08-17 15:32 | Inpatient (IN) | payer MEDICAID ==
[~2019-08-17] VITALS: Ht 170.2 cm; Wt 52.2 kg
[~2019-08-17 15:32] MED LIST changes: +ONDA4TAB13 PO
--- NOTE | 2019-08-17 15:42 | NUR ---
RESAW FEEDER: PT TRANSPORTED TO ROOM IN WHEELCHAIR. PRIMARY RN NOTIFIED.
[2019-08-17] MEDS ORDERED: SODIUM CHLORIDE FLUSH 10ML SYR IVF ONE (16:00)
[2019-08-17] MEDS ORDERED: SODIUM CHLORIDE 0.9% 1,000ML IVBOLUS ONE ×2 (16:00→17:00)
[2019-08-17] MEDS ORDERED: FAMOTIDINE 20 MG/2 ML IVPush ONE (16:00)
[2019-08-17] MEDS ORDERED: ONDANSETRON 2MG/ML, 2ML IVPush ONE (16:00)
--- NOTE | 2019-08-17 16:00 | NUR ---
pt hypotensive, piv est x2, ivf infusing. labs drawn. yeison in room for eval. plan ct. as
[2019-08-17] MEDS ORDERED: METOCLOPRAMIDE 5 MG/ML, 2ML ONE (16:09)
[2019-08-17] MEDS ORDERED: FAMOTIDINE 20 MG/2 ML ONE (16:09)
[2019-08-17 16:12] LABS: BASOPHILS # (AUTO) 0.02 x10^3/uL (0-0.1); BASOPHILS % (AUTO) 0 % (0-1); EOSINOPHILS % (AUTO) 0 % (1-7); LYMPHOCYTES # (AUTO) 0.83 x10^3/uL (1-3.4); LYMPHOCYTES % (AUTO) 8 % (22-44); MD NO; MEAN CORPUSCULAR HEMOGLOBIN 31.1 pg (27.5-34.5); MEAN CORPUSCULAR HGB CONC 32.9 g/dL (33.2-36.2); MEAN CORPUSCULAR VOLUME 94.5 fL (81-97); MEAN PLATELET VOLUME 7.9 fL (7.4-10.4); MONOCYTES # (AUTO) 0.55 x10^3/uL (0.2-0.8); MONOCYTES % (AUTO) 5 % (2-9); NEUTROPHILS # (AUTO) 9.75 x10^3/uL (1.8-6.8); NEUTROPHILS % (AUTO) 87 % (42-75); PLATELET COUNT 360 x10^3/uL (130-400); RED BLOOD COUNT 4.49 x10^6/uL (4.38-5.82)
[2019-08-17 16:20] LABS: ALANINE AMINOTRANSFERASE 75 U/L (12-78); ALBUMIN 3.8 g/dL (3.4-5.0); ANION GAP 10 mmol/L (5-15); CALCIUM 9.8 mg/dL (8.5-10.1); CHLORIDE 97 mmol/L (98-107); CREATININE 1.49 mg/dL (0.7-1.3)
[2019-08-17 16:22] LABS: ALKALINE PHOSPHATASE 136 U/L (45-117); BILIRUBIN,TOTAL 1.1 mg/dL (0.2-1.0); TOTAL PROTEIN 8.3 g/dL (6.4-8.2)
[2019-08-17] MEDS ORDERED: METOCLOPRAMIDE 5 MG/ML, 2ML IVPush ONE (16:30)
--- NOTE | 2019-08-17 17:00 | NUR ---
pt has not vomited since here. asking for pain meds. bp imrpoving. as
--- NOTE | 2019-08-17 17:53 | NUR ---
pt to ct. as.
--- NOTE | 2019-08-17 17:59 | NUR ---
back from ct. resting calmly. bp improved, as charted. no vomiting. as
[2019-08-17] MEDS ORDERED: KETOROLAC 30 MG/1 ML IVPush ONE (18:00)
--- NOTE | 2019-08-17 18:17 | NUR ---
recheck. ct back. as
[2019-08-17] MEDS ORDERED: SODIUM CHLORIDE 0.9% 1,000 ML IV ONE (18:18)
[2019-08-17] MEDS ORDERED: SODIUM CHLORIDE FLUSH 10ML SYR IVF PRN (18:30)
--- NOTE | 2019-08-17 18:53 | NUR ---
#18 fr NG tube inserted per md, to low cont sx. drained approx 350 at insertion. admitting Patti hospitialist in room for eval. vss. bp imrpoved. pt aware of admit and agrees. call youssef. as
--- NOTE | 2019-08-17 19:13 | NUR ---
report to katerin kern. as
[2019-08-17] MEDS ORDERED: BISACODYL 10 MG SUPP PR PRN (19:30)
[2019-08-17] MEDS ORDERED: GLUCAGON 1 MG IM PRN (19:30)
[2019-08-17] MEDS ORDERED: DEXTROSE 4 GM TAB.CHEW PO PRN (19:30)
[2019-08-17] MEDS ORDERED: DEXTROSE 50%, 50ML SYRINGE IVPush PRN (19:30)
[2019-08-17] MEDS ORDERED: POTASSIUM CHLORIDE 40 MEQ in SODIUM CHLORIDE 0.9% 500 ML IV ONE (19:30)
[2019-08-17] MEDS ORDERED: ONDANSETRON 2MG/ML, 2ML IVPush PRN (19:30)
[2019-08-17] MEDS ORDERED: LORazepam 2 MG/ML, 1ML IVPush PRN (19:30)
[2019-08-17 19:58] VITALS: BP 109/68
[2019-08-17] MEDS: INSULIN LISPRO 100 UNITS/ML, PEN SQ-INSULIN SCH (21:00)
[2019-08-17] MEDS: SODIUM CHLORIDE FLUSH 10ML SYR IVF SCH (21:35)
[2019-08-17] MEDS: HEPARIN 5,000 UNITS/ML, 1ML SQ SCH (21:35)
[2019-08-17] MEDS ORDERED: ACETAMINOPHEN 650 MG SUPP PR PRN (22:00)
[2019-08-17 22:15] LABS: MICROSCOPIC INDICATED
[2019-08-17 22:24] LABS: CHLORIDE,URINE RANDOM 77 mmol/L; POTASSIUM,URINE RANDOM 41 mmol/L; SODIUM,URINE RANDOM 107 mmol/L
[2019-08-17 22:26] LABS: CULTURE INDICATED? NO
[2019-08-17] MEDS: NS + 20MEQ KCL 1,000 ML IV SCH (23:46)
[2019-08-18 01:21] VITALS: BP 90/53
[2019-08-18 04:37] LABS: BASOPHILS # (AUTO) 0.01 x10^3/uL (0-0.1); BASOPHILS % (AUTO) 0 % (0-1); EOSINOPHILS # (AUTO) 0.01 x10^3/uL (0-0.4); EOSINOPHILS % (AUTO) 0 % (1-7); LYMPHOCYTES # (AUTO) 1.72 x10^3/uL (1-3.4); LYMPHOCYTES % (AUTO) 18 % (22-44); MD NO; MEAN CORPUSCULAR HEMOGLOBIN 31.4 pg (27.5-34.5); MEAN CORPUSCULAR HGB CONC 33.1 g/dL (33.2-36.2); MEAN PLATELET VOLUME 7.6 fL (7.4-10.4); MONOCYTES # (AUTO) 0.68 x10^3/uL (0.2-0.8); MONOCYTES % (AUTO) 7 % (2-9); NEUTROPHILS # (AUTO) 7.43 x10^3/uL (1.8-6.8); NEUTROPHILS % (AUTO) 76 % (42-75); PLATELET COUNT 258 x10^3/uL (130-400); RED BLOOD COUNT 3.42 x10^6/uL (4.38-5.82); RED CELL DISTRIBUTION WIDTH 14.7 % (9.4-14.8)
[2019-08-18 04:48] LABS: ANION GAP 5 mmol/L (5-15); CALCIUM 8.4 mg/dL (8.5-10.1); CHLORIDE 106 mmol/L (98-107); CREATININE 0.67 mg/dL (0.7-1.3)
[2019-08-18] MEDS: HEPARIN 5,000 UNITS/ML, 1ML SQ SCH ×3 (05:21→20:40)
[2019-08-18] MEDS ORDERED: PANTOPRAZOLE 40 MG IV IVPush SCH (07:30)
[2019-08-18 08:01] VITALS: BP 96/63
[2019-08-18] MEDS: INSULIN LISPRO 100 UNITS/ML, PEN SQ-INSULIN SCH ×4 (08:46→20:45)
[2019-08-18] MEDS: SODIUM CHLORIDE FLUSH 10ML SYR IVF SCH ×3 (08:55→20:30)
[2019-08-18] MEDS ORDERED: KETOROLAC 30 MG/1 ML IVPush ONE (09:30)
[2019-08-18] MEDS: NS + 20MEQ KCL 1,000 ML IV SCH ×2 (10:03→20:46)
[2019-08-18 12:42] VITALS: BP 97/56
[2019-08-18] MEDS: METOCLOPRAMIDE 5 MG/ML, 2ML IVPush SCH ×2 (14:20→20:30)
[2019-08-18] MEDS: MORPHINE SULFATE 4 MG/ML, 1ML IVPush PRN (14:20)
[2019-08-18] MEDS ORDERED: DEXTROSE 4 GM TAB.CHEW PO PRN (17:30)
[2019-08-18] MEDS ORDERED: DEXTROSE 50%, 50ML SYRINGE IVPush PRN (17:30)
[2019-08-18] MEDS ORDERED: GLUCAGON 1 MG IM PRN (17:30)
[2019-08-18 20:12] VITALS: BP 99/64
[2019-08-18] MEDS: PANTOPRAZOLE 40 MG IV IVPush SCH (20:40)
[2019-08-19 00:10] VITALS: BP 105/56
[2019-08-19] MEDS: METOCLOPRAMIDE 5 MG/ML, 2ML IVPush SCH ×4 (01:55→19:35)
[2019-08-19] MEDS: INSULIN LISPRO 100 UNITS/ML, PEN SQ-INSULIN SCH ×4 (02:01→20:16)
[2019-08-19 05:13] LABS: CHLORIDE 110 mmol/L (98-107)
[2019-08-19 05:16] LABS: BASOPHILS # (AUTO) 0.02 x10^3/uL (0-0.1); BASOPHILS % (AUTO) 0 % (0-1); EOSINOPHILS # (AUTO) 0.03 x10^3/uL (0-0.4); EOSINOPHILS % (AUTO) 1 % (1-7); LYMPHOCYTES # (AUTO) 1.12 x10^3/uL (1-3.4); LYMPHOCYTES % (AUTO) 16 % (22-44); MD NO; MEAN CORPUSCULAR HEMOGLOBIN 31.7 pg (27.5-34.5); MEAN CORPUSCULAR HGB CONC 33.2 g/dL (33.2-36.2); MEAN CORPUSCULAR VOLUME 95.6 fL (81-97); MEAN PLATELET VOLUME 7.9 fL (7.4-10.4); MONOCYTES # (AUTO) 0.53 x10^3/uL (0.2-0.8); MONOCYTES % (AUTO) 8 % (2-9); NEUTROPHILS # (AUTO) 5.15 x10^3/uL (1.8-6.8); NEUTROPHILS % (AUTO) 75 % (42-75); PLATELET COUNT 195 x10^3/uL (130-400); RED BLOOD COUNT 3.13 x10^6/uL (4.38-5.82); RED CELL DISTRIBUTION WIDTH 14.9 % (9.4-14.8)
[2019-08-19 05:17] LABS: ANION GAP 6 mmol/L (5-15); CALCIUM 8.2 mg/dL (8.5-10.1); CREATININE 0.55 mg/dL (0.7-1.3)
[2019-08-19] MEDS: HEPARIN 5,000 UNITS/ML, 1ML SQ SCH ×3 (05:30→20:26)
[2019-08-19 07:10] VITALS: BP 101/61
[2019-08-19] MEDS: NS + 20MEQ KCL 1,000 ML IV SCH ×2 (07:29→17:17)
[2019-08-19] MEDS: PANTOPRAZOLE 40 MG IV IVPush SCH ×2 (07:30→20:26)
[2019-08-19] MEDS: SODIUM CHLORIDE FLUSH 10ML SYR IVF SCH ×4 (07:44→20:17)
[2019-08-19] MEDS: MORPHINE SULFATE 4 MG/ML, 1ML IVPush PRN (07:44)
[2019-08-19 13:58] VITALS: BP 102/61
[2019-08-19 19:21] VITALS: BP 101/63
[2019-08-20 00:42] VITALS: BP 116/79
[2019-08-20] MEDS: METOCLOPRAMIDE 5 MG/ML, 2ML IVPush SCH ×4 (01:40→19:31)
[2019-08-20] MEDS: NS + 20MEQ KCL 1,000 ML IV SCH (02:26)
[2019-08-20] MEDS: INSULIN LISPRO 100 UNITS/ML, PEN SQ-INSULIN SCH ×4 (02:28→21:01)
[2019-08-20] MEDS: HEPARIN 5,000 UNITS/ML, 1ML SQ SCH ×3 (04:43→21:00)
[2019-08-20] MEDS: PANTOPRAZOLE 40 MG IV IVPush SCH ×2 (08:08→21:00)
[2019-08-20 08:37] VITALS: BP 101/67
[2019-08-20] MEDS: SODIUM CHLORIDE FLUSH 10ML SYR IVF SCH ×4 (08:45→21:05)
[2019-08-20] MEDS ORDERED: CHLORHEXIDINE 15 ML UDC MM ONE (09:00)
[2019-08-20] MEDS ORDERED: FENTANYL PF 100 MCG/2ML ONE (09:47)
[2019-08-20] MEDS ORDERED: MIDAZOLAM 1 MG/ML, 2ML ONE (09:49)
[2019-08-20] MEDS ORDERED: ACETAMINOPHEN 325 MG TABLET PO PRN (10:00)
[2019-08-20] MEDS ORDERED: HYDROmorphone 2 MG/ML, 1ML IVPush PRN (10:00)
[2019-08-20] MEDS ORDERED: MEPERIDINE/PF 25MG/ML,1ML IVPush PRN (10:00)
[2019-08-20] MEDS ORDERED: EPHEDRINE 50 MG/ML, 1ML IVPush PRN (10:00)
[2019-08-20] MEDS ORDERED: PROMETHAZINE 25 MG/ML, 1ML IV PRN (10:00)
[2019-08-20] MEDS ORDERED: ONDANSETRON 2MG/ML, 2ML IV PRN (10:00)
[2019-08-20] MEDS ORDERED: FENTANYL PF 100 MCG/2ML IV PRN (10:00)
[2019-08-20] MEDS ORDERED: LABETALOL 5MG/ML, 20ML IV PRN (10:00)
[2019-08-20] MEDS ORDERED: hydrALAzine 20 MG/ML, 1ML IV PRN (10:00)
[2019-08-20] MEDS ORDERED: OXYcodone 5 MG/5 ML ORAL.SOL UDC PO PRN (10:00)
[2019-08-20] MEDS ORDERED: SUCCINYLCHOLINE 20 MG/ML, 10ML ONE (10:16)
[2019-08-20] MEDS ORDERED: DEXAMETHASONE 4 MG/ML, 1ML ONE (10:16)
[2019-08-20] MEDS ORDERED: ONDANSETRON 2MG/ML, 2ML ONE (10:16)
[2019-08-20] MEDS ORDERED: PROPOFOL 10 MG/ML, 20ML ONE (10:16)
[2019-08-20 12:59] VITALS: BP 109/69
[2019-08-20] MEDS: SODIUM CHLORIDE 0.9% 1,000 ML IV SCH (14:04)
[2019-08-20 14:29] VITALS: BP 125/79
[2019-08-20 19:58] VITALS: BP 98/62
[2019-08-21] MEDS: METOCLOPRAMIDE 5 MG/ML, 2ML IVPush SCH ×4 (01:15→19:51)
[2019-08-21 01:18] VITALS: BP 107/70
[2019-08-21] MEDS: INSULIN LISPRO 100 UNITS/ML, PEN SQ-INSULIN SCH ×4 (02:37→20:55)
[2019-08-21] MEDS: SODIUM CHLORIDE 0.9% 1,000 ML IV SCH (02:37)
[2019-08-21] MEDS: HEPARIN 5,000 UNITS/ML, 1ML SQ SCH ×3 (04:44→20:54)
[2019-08-21 05:34] LABS: ANION GAP 9 mmol/L (5-15); CALCIUM 8.7 mg/dL (8.5-10.1); CHLORIDE 104 mmol/L (98-107)
[2019-08-21 05:36] LABS: CREATININE 0.54 mg/dL (0.7-1.3)
[2019-08-21 05:37] LABS: BASOPHILS # (AUTO) 0.01 x10^3/uL (0-0.1); BASOPHILS % (AUTO) 0 % (0-1); EOSINOPHILS # (AUTO) 0.02 x10^3/uL (0-0.4); EOSINOPHILS % (AUTO) 0 % (1-7); LYMPHOCYTES # (AUTO) 0.84 x10^3/uL (1-3.4); LYMPHOCYTES % (AUTO) 19 % (22-44); MD NO; MEAN CORPUSCULAR HEMOGLOBIN 31.3 pg (27.5-34.5); MEAN CORPUSCULAR HGB CONC 33.4 g/dL (33.2-36.2); MEAN CORPUSCULAR VOLUME 93.6 fL (81-97); MEAN PLATELET VOLUME 7.9 fL (7.4-10.4); MONOCYTES # (AUTO) 0.37 x10^3/uL (0.2-0.8); MONOCYTES % (AUTO) 8 % (2-9); NEUTROPHILS % (AUTO) 73 % (42-75); PLATELET COUNT 235 x10^3/uL (130-400); RED BLOOD COUNT 3.41 x10^6/uL (4.38-5.82)
[2019-08-21 07:43] VITALS: BP 113/67
[2019-08-21] MEDS: PANTOPRAZOLE 40 MG IV IVPush SCH ×2 (08:58→20:54)
[2019-08-21] MEDS: SODIUM CHLORIDE FLUSH 10ML SYR IVF SCH ×4 (08:59→20:36)
[2019-08-21] MEDS ORDERED: OXYcodone IR 5MG TABLET PO PRN (10:30)
[2019-08-21 14:53] VITALS: BP 120/76
[2019-08-21 19:00] VITALS: BP 100/63
[2019-08-21] MEDS: INSULIN GLARGINE 100 UNITS/ML, PEN SQ-INSULIN SCH (20:55)
[2019-08-22 00:16] VITALS: BP 95/56
[2019-08-22] MEDS: METOCLOPRAMIDE 5 MG/ML, 2ML IVPush SCH ×4 (01:39→19:43)
[2019-08-22] MEDS: INSULIN LISPRO 100 UNITS/ML, PEN SQ-INSULIN SCH ×2 (03:00→09:00)
[2019-08-22] MEDS: HEPARIN 5,000 UNITS/ML, 1ML SQ SCH ×4 (05:20→19:52)
[2019-08-22 07:32] VITALS: BP 93/55
[2019-08-22] MEDS: SODIUM CHLORIDE FLUSH 10ML SYR IVF SCH ×3 (09:00→19:42)
[2019-08-22] MEDS: INSULIN GLARGINE 100 UNITS/ML, PEN SQ-INSULIN SCH ×2 (09:27→21:36)
[2019-08-22] MEDS: PANTOPRAZOLE 40 MG IV IVPush SCH ×2 (09:28→19:43)
[2019-08-22 10:27] LABS: ALANINE AMINOTRANSFERASE 41 U/L (12-78); ALBUMIN 2.4 g/dL (3.4-5.0); ANION GAP 4 mmol/L (5-15); CALCIUM 8.6 mg/dL (8.5-10.1); CHLORIDE 106 mmol/L (98-107); CREATININE 0.57 mg/dL (0.7-1.3)
[2019-08-22 10:32] LABS: ALKALINE PHOSPHATASE 68 U/L (45-117); BILIRUBIN,TOTAL 0.4 mg/dL (0.2-1.0); PREALBUMIN 7.3 mg/dL (20.0-40.0); TOTAL PROTEIN 6.4 g/dL (6.4-8.2); TRIGLYCERIDES 122 mg/dL (50-200)
[2019-08-22] MEDS ORDERED: SODIUM PHOSPHATE 30 MMOL in SODIUM CHLORIDE 0.9% 500 ML IV ONE (12:00)
[2019-08-22] MEDS ORDERED: MAGNESIUM SULFATE PMX 2GM/50ML 50 ML IV ONE (12:00)
[2019-08-22] MEDS ORDERED: FILTER, DISP 1.2 MICRON FOR TPN/PVN IV PRN (12:00)
[2019-08-22 14:08] VITALS: BP 91/56
[2019-08-22] MEDS ORDERED: TPN PER PHARMACY MC PRN (15:30)
[2019-08-22] MEDS: ERYTHROMYCIN 200 MG/5 ML ORAL SOL NG SCH ×2 (16:40→21:37)
[2019-08-22] MEDS ORDERED: SMOF TPN IV SCH (17:00)
[2019-08-22] MEDS ORDERED: PVN PER PHARMACY MC PRN (17:00)
[2019-08-22] MEDS ORDERED: DEXTROSE 50%, 50ML SYRINGE IVPush PRN (17:00)
[2019-08-22] MEDS ORDERED: FAT EMUL IV SCH (17:00)
[2019-08-22] MEDS ORDERED: AMINO ACID 10% IV SCH (17:00)
[2019-08-22] MEDS ORDERED: DEXTROSE 70% IV SCH (17:00)
[2019-08-22] MEDS ORDERED: ERYTHROMYCIN 250 MG in SODIUM CHLORIDE 0.9% 100 ML IV SCH (17:00)
[2019-08-22] MEDS ORDERED: [UNRECOGNIZED DRUG - OTHER] IV SCH (17:00)
[2019-08-22 19:20] VITALS: BP 97/63
[2019-08-22] MEDS: INSULIN REGULAR MEDIUM DOSE Q6H X 48HRS SQ-INSULIN SCH (21:37)
[2019-08-23 00:15] VITALS: BP 95/56
[2019-08-23] MEDS: METOCLOPRAMIDE 5 MG/ML, 2ML IVPush SCH ×4 (01:38→20:23)
[2019-08-23] MEDS: INSULIN REGULAR MEDIUM DOSE Q6H X 48HRS SQ-INSULIN SCH ×4 (03:44→21:59)
[2019-08-23 04:37] LABS: ANION GAP 3 mmol/L (5-15); CALCIUM 8.3 mg/dL (8.5-10.1); CHLORIDE 102 mmol/L (98-107); CREATININE 0.49 mg/dL (0.7-1.3)
[2019-08-23] MEDS: HEPARIN 5,000 UNITS/ML, 1ML SQ SCH ×6 (05:00→21:00)
[2019-08-23 06:45] VITALS: BP 93/51
[2019-08-23] MEDS: ERYTHROMYCIN 200 MG/5 ML ORAL SOL NG SCH ×2 (08:07→16:37)
[2019-08-23] MEDS: PANTOPRAZOLE 40 MG IV IVPush SCH ×2 (08:07→21:57)
[2019-08-23] MEDS: SODIUM CHLORIDE FLUSH 10ML SYR IVF SCH ×2 (08:07→21:57)
[2019-08-23] MEDS: INSULIN GLARGINE 100 UNITS/ML, PEN SQ-INSULIN SCH ×2 (08:10→21:59)
[2019-08-23 13:39] VITALS: BP 89/47
[2019-08-23] MEDS ORDERED: [UNRECOGNIZED DRUG - OTHER] IV SCH ×2 (17:00)
[2019-08-23] MEDS ORDERED: AMINO ACID 10% IV SCH ×2 (17:00)
[2019-08-23] MEDS ORDERED: DEXTROSE 70% IV SCH ×2 (17:00)
[2019-08-23] MEDS ORDERED: SMOF TPN IV SCH ×2 (17:00)
[2019-08-23] MEDS ORDERED: FAT EMUL IV SCH ×2 (17:00)
[2019-08-23 18:19] VITALS: BP 90/45
[2019-08-24] MEDS: ERYTHROMYCIN 200 MG/5 ML ORAL SOL NG SCH ×3 (00:18→17:01)
[2019-08-24] MEDS: METOCLOPRAMIDE 5 MG/ML, 2ML IVPush SCH ×4 (01:50→20:22)
[2019-08-24 02:32] VITALS: BP 99/56
[2019-08-24] MEDS: INSULIN REGULAR MEDIUM DOSE Q6H X 48HRS SQ-INSULIN SCH ×4 (03:43→20:59)
[2019-08-24] MEDS: HEPARIN 5,000 UNITS/ML, 1ML SQ SCH ×3 (05:00→21:12)
[2019-08-24 07:37] VITALS: BP 91/57
[2019-08-24] MEDS: PANTOPRAZOLE 40 MG IV IVPush SCH ×2 (08:25→20:59)
[2019-08-24] MEDS: INSULIN GLARGINE 100 UNITS/ML, PEN SQ-INSULIN SCH ×2 (08:26→20:59)
[2019-08-24] MEDS: SODIUM CHLORIDE FLUSH 10ML SYR IVF SCH ×2 (08:27→20:58)
[2019-08-24] MEDS ORDERED: PHENOL THROAT SPRAY BOTTLE MM PRN (09:30)
[2019-08-24 10:55] LABS: ANION GAP 4 mmol/L (5-15); CALCIUM 6.1 mg/dL (8.5-10.1); CHLORIDE 115 mmol/L (98-107); CREATININE 0.22 mg/dL (0.7-1.3)
[2019-08-24] MEDS ORDERED: MAGNESIUM SULFATE 4 GM/NS 100 ML IV ONE (12:00)
[2019-08-24] MEDS ORDERED: MAGNESIUM SULFATE PMX 4GM/100M 100 ML IV ONE (12:00)
[2019-08-24 13:34] VITALS: BP 83/47
[2019-08-24] MEDS ORDERED: CALCIUM GLUCONATE 18.4 MEQ in SODIUM CHLORIDE 0.9% 100 ML IV ONE (16:30)
[2019-08-24] MEDS ORDERED: FILTER, DISP 1.2 MICRON FOR TPN/PVN IV PRN (17:00)
[2019-08-24] MEDS ORDERED: FAT EMUL IV SCH (17:00)
[2019-08-24] MEDS ORDERED: [UNRECOGNIZED DRUG - OTHER] IV SCH (17:00)
[2019-08-24] MEDS ORDERED: SMOF TPN IV SCH (17:00)
[2019-08-24] MEDS ORDERED: DEXTROSE 70% IV SCH (17:00)
[2019-08-24] MEDS ORDERED: AMINO ACID 10% IV SCH (17:00)
[2019-08-24 19:14] VITALS: BP 80/55
[2019-08-24 19:28] VITALS: BP 88/62
[2019-08-25] MEDS ORDERED: ERYTHROMYCIN 200 MG/5 ML ORAL SOL NG SCH (01:00)
[2019-08-25 01:07] VITALS: BP 88/43
[2019-08-25] MEDS: METOCLOPRAMIDE 5 MG/ML, 2ML IVPush SCH ×4 (01:15→20:16)
[2019-08-25] MEDS: ERYTHROMYCIN 200 MG/5 ML ORAL SOL NG SCH ×3 (01:15→20:16)
[2019-08-25] MEDS: INSULIN REGULAR MEDIUM DOSE Q6H X 48HRS SQ-INSULIN SCH ×4 (03:00→21:00)
[2019-08-25] MEDS: HEPARIN 5,000 UNITS/ML, 1ML SQ SCH ×3 (04:32→21:45)
[2019-08-25 05:38] LABS: ALBUMIN 2.6 g/dL (3.4-5.0); ANION GAP 5 mmol/L (5-15); CHLORIDE 96 mmol/L (98-107)
[2019-08-25 05:41] LABS: ALANINE AMINOTRANSFERASE 34 U/L (12-78); ALKALINE PHOSPHATASE 72 U/L (45-117); BILIRUBIN,TOTAL 0.5 mg/dL (0.2-1.0); CREATININE 0.51 mg/dL (0.7-1.3); TOTAL PROTEIN 6.9 g/dL (6.4-8.2); TRIGLYCERIDES 61 mg/dL (50-200)
[2019-08-25 08:07] VITALS: BP 92/52
[2019-08-25] MEDS: SODIUM CHLORIDE FLUSH 10ML SYR IVF SCH ×2 (08:28→21:45)
[2019-08-25] MEDS: PANTOPRAZOLE 40 MG IV IVPush SCH ×2 (08:29→21:45)
[2019-08-25] MEDS: INSULIN GLARGINE 100 UNITS/ML, PEN SQ-INSULIN SCH ×2 (08:30→21:46)
[2019-08-25 14:08] VITALS: BP 87/51
[2019-08-25] MEDS ORDERED: BENZOCAINE 20% SPRAY 0.5ML TP ONE (15:00)
[2019-08-25] MEDS ORDERED: FILTER, DISP 1.2 MICRON FOR TPN/PVN IV PRN (17:00)
[2019-08-25] MEDS ORDERED: [UNRECOGNIZED DRUG - OTHER] IV SCH (17:00)
[2019-08-25] MEDS ORDERED: FAT EMUL IV SCH (17:00)
[2019-08-25] MEDS ORDERED: DEXTROSE 70% IV SCH (17:00)
[2019-08-25] MEDS ORDERED: AMINO ACID 10% IV SCH (17:00)
[2019-08-25] MEDS ORDERED: SMOF TPN IV SCH (17:00)
[2019-08-25 19:59] VITALS: BP 99/70
[2019-08-25] MEDS ORDERED: OMNIPAQUE 350 MG/ML, 150 ML BOTTLE ONE (20:12)
[2019-08-26 02:15] VITALS: BP 92/56
[2019-08-26] MEDS: METOCLOPRAMIDE 5 MG/ML, 2ML IVPush SCH ×4 (02:21→20:08)
[2019-08-26] MEDS: INSULIN REGULAR MEDIUM DOSE Q6H X 48HRS SQ-INSULIN SCH ×4 (02:34→21:12)
[2019-08-26] MEDS: ERYTHROMYCIN 200 MG/5 ML ORAL SOL NG SCH ×3 (04:15→17:00)
[2019-08-26 04:51] LABS: ANION GAP 3 mmol/L (5-15); CALCIUM 8.8 mg/dL (8.5-10.1); CHLORIDE 97 mmol/L (98-107); CREATININE 0.65 mg/dL (0.7-1.3)
[2019-08-26] MEDS: HEPARIN 5,000 UNITS/ML, 1ML SQ SCH ×3 (05:22→21:15)
[2019-08-26 08:11] VITALS: BP 87/56
[2019-08-26] MEDS: PANTOPRAZOLE 40 MG IV IVPush SCH ×2 (09:02→21:14)
[2019-08-26] MEDS: SODIUM CHLORIDE FLUSH 10ML SYR IVF SCH ×2 (09:03→21:15)
[2019-08-26] MEDS: INSULIN GLARGINE 100 UNITS/ML, PEN SQ-INSULIN SCH ×2 (09:10→21:13)
[2019-08-26 15:08] VITALS: BP 87/48
[2019-08-26] MEDS ORDERED: AMINO ACID 10% IV SCH (17:00)
[2019-08-26] MEDS ORDERED: SMOF TPN IV SCH (17:00)
[2019-08-26] MEDS ORDERED: [UNRECOGNIZED DRUG - OTHER] IV SCH (17:00)
[2019-08-26] MEDS ORDERED: DEXTROSE 70% IV SCH (17:00)
[2019-08-26] MEDS ORDERED: FAT EMUL IV SCH (17:00)
[2019-08-26] MEDS: FILTER, DISP 1.2 MICRON FOR TPN/PVN IV PRN (17:01)
[2019-08-26 20:49] VITALS: BP 85/44
[2019-08-27 00:51] VITALS: BP 84/48
[2019-08-27] MEDS: ERYTHROMYCIN 200 MG/5 ML ORAL SOL NG SCH ×3 (01:12→17:13)
[2019-08-27] MEDS: METOCLOPRAMIDE 5 MG/ML, 2ML IVPush SCH ×4 (01:18→20:02)
[2019-08-27] MEDS: INSULIN REGULAR MEDIUM DOSE Q6H X 48HRS SQ-INSULIN SCH ×4 (03:01→20:05)
[2019-08-27 03:54] LABS: ANION GAP 7 mmol/L (5-15); CALCIUM 8.6 mg/dL (8.5-10.1); CHLORIDE 101 mmol/L (98-107); CREATININE 0.64 mg/dL (0.7-1.3)
[2019-08-27] MEDS: HEPARIN 5,000 UNITS/ML, 1ML SQ SCH ×3 (05:00→20:02)
[2019-08-27 07:57] VITALS: BP 97/64
[2019-08-27] MEDS: PANTOPRAZOLE 40 MG IV IVPush SCH ×2 (08:34→20:02)
[2019-08-27] MEDS: SODIUM CHLORIDE FLUSH 10ML SYR IVF SCH ×2 (08:35→20:03)
[2019-08-27] MEDS: INSULIN GLARGINE 100 UNITS/ML, PEN SQ-INSULIN SCH ×2 (08:42→21:21)
[2019-08-27 14:50] VITALS: BP 91/59
[2019-08-27] MEDS ORDERED: SMOF TPN IV SCH ×2 (17:00)
[2019-08-27] MEDS ORDERED: DEXTROSE 70% IV SCH ×2 (17:00)
[2019-08-27] MEDS ORDERED: FAT EMUL IV SCH ×2 (17:00)
[2019-08-27] MEDS ORDERED: [UNRECOGNIZED DRUG - OTHER] IV SCH (17:00)
[2019-08-27] MEDS ORDERED: AMINO ACID 10% IV SCH ×2 (17:00)
[2019-08-27] MEDS ORDERED: [UNRECOGNIZED DRUG - OTHER] IV SCH (17:00)
[2019-08-27] MEDS: FILTER, DISP 1.2 MICRON FOR TPN/PVN IV PRN (17:14)
[2019-08-27 20:52] VITALS: BP 93/57
[2019-08-28] MEDS: ERYTHROMYCIN 200 MG/5 ML ORAL SOL NG SCH ×3 (00:33→17:20)
[2019-08-28 01:57] VITALS: BP 95/61
[2019-08-28] MEDS: INSULIN REGULAR MEDIUM DOSE Q6H X 48HRS SQ-INSULIN SCH ×3 (02:30→15:23)
[2019-08-28] MEDS: METOCLOPRAMIDE 5 MG/ML, 2ML IVPush SCH ×4 (02:41→21:17)
[2019-08-28] MEDS: HEPARIN 5,000 UNITS/ML, 1ML SQ SCH ×3 (04:41→21:17)
[2019-08-28 06:06] LABS: ANION GAP 5 mmol/L (5-15); CALCIUM 8.6 mg/dL (8.5-10.1); CHLORIDE 107 mmol/L (98-107); CREATININE 0.56 mg/dL (0.7-1.3)
[2019-08-28] MEDS: PANTOPRAZOLE 40 MG IV IVPush SCH ×2 (08:31→21:18)
[2019-08-28] MEDS: SODIUM CHLORIDE FLUSH 10ML SYR IVF SCH ×2 (08:32→21:18)
[2019-08-28] MEDS: INSULIN GLARGINE 100 UNITS/ML, PEN SQ-INSULIN SCH ×2 (08:45→21:18)
[2019-08-28 09:50] VITALS: BP 95/46
[2019-08-28 14:19] VITALS: BP 89/56
[2019-08-28] MEDS ORDERED: [UNRECOGNIZED DRUG - OTHER] IV SCH (17:00)
[2019-08-28] MEDS ORDERED: SMOF TPN IV SCH (17:00)
[2019-08-28] MEDS ORDERED: FAT EMUL IV SCH (17:00)
[2019-08-28] MEDS ORDERED: DEXTROSE 70% IV SCH (17:00)
[2019-08-28] MEDS ORDERED: AMINO ACID 10% IV SCH (17:00)
[2019-08-28] MEDS: FILTER, DISP 1.2 MICRON FOR TPN/PVN IV PRN (17:20)
[2019-08-28 19:15] VITALS: BP 82/38
[2019-08-29 01:40] VITALS: BP 80/45
[2019-08-29] MEDS: ERYTHROMYCIN 200 MG/5 ML ORAL SOL NG SCH ×3 (01:59→17:26)
[2019-08-29] MEDS: METOCLOPRAMIDE 5 MG/ML, 2ML IVPush SCH ×4 (01:59→21:19)
[2019-08-29] MEDS: HEPARIN 5,000 UNITS/ML, 1ML SQ SCH ×4 (04:20→22:25)
[2019-08-29 04:49] LABS: ANION GAP 6 mmol/L (5-15); CALCIUM 8.8 mg/dL (8.5-10.1); CHLORIDE 107 mmol/L (98-107)
[2019-08-29 04:50] LABS: CREATININE 0.61 mg/dL (0.7-1.3)
[2019-08-29 07:22] VITALS: BP 80/46
[2019-08-29] MEDS: INSULIN REGULAR MEDIUM DOSE Q6H X 48HRS SQ-INSULIN SCH (09:00)
[2019-08-29] MEDS: PANTOPRAZOLE 40 MG IV IVPush SCH ×2 (09:48→21:19)
[2019-08-29] MEDS: SODIUM CHLORIDE FLUSH 10ML SYR IVF SCH ×2 (09:48→21:00)
[2019-08-29] MEDS: INSULIN GLARGINE 100 UNITS/ML, PEN SQ-INSULIN SCH ×3 (10:29→22:25)
[2019-08-29 13:03] VITALS: BP 88/45
[2019-08-29] MEDS ORDERED: FAT EMUL IV SCH (17:00)
[2019-08-29] MEDS ORDERED: SMOF TPN IV SCH (17:00)
[2019-08-29] MEDS ORDERED: AMINO ACID 10% IV SCH (17:00)
[2019-08-29] MEDS ORDERED: [UNRECOGNIZED DRUG - OTHER] IV SCH (17:00)
[2019-08-29] MEDS ORDERED: DEXTROSE 70% IV SCH (17:00)
[2019-08-29 19:03] VITALS: BP 84/45
[2019-08-30 00:26] VITALS: BP 93/45
[2019-08-30] MEDS: ERYTHROMYCIN 200 MG/5 ML ORAL SOL NG SCH ×3 (02:21→17:06)
[2019-08-30] MEDS: METOCLOPRAMIDE 5 MG/ML, 2ML IVPush SCH ×4 (02:24→20:38)
[2019-08-30 05:31] LABS: ALBUMIN 2.5 g/dL (3.4-5.0); ANION GAP 7 mmol/L (5-15); CALCIUM 8.9 mg/dL (8.5-10.1); CHLORIDE 107 mmol/L (98-107)
[2019-08-30 05:32] LABS: CREATININE 0.56 mg/dL (0.7-1.3)
[2019-08-30] MEDS: HEPARIN 5,000 UNITS/ML, 1ML SQ SCH ×2 (05:54→16:00)
[2019-08-30 07:52] VITALS: BP 84/52
[2019-08-30] MEDS: INSULIN REGULAR MEDIUM DOSE Q6H X 48HRS SQ-INSULIN SCH (09:00)
[2019-08-30] MEDS: PANTOPRAZOLE 40 MG IV IVPush SCH ×2 (09:04→20:38)
[2019-08-30] MEDS: SODIUM CHLORIDE FLUSH 10ML SYR IVF SCH ×2 (09:04→20:39)
[2019-08-30] MEDS: INSULIN GLARGINE 100 UNITS/ML, PEN SQ-INSULIN SCH ×2 (09:10→20:39)
[2019-08-30 13:58] VITALS: BP 88/46
[2019-08-30] MEDS ORDERED: [UNRECOGNIZED DRUG - OTHER] IV SCH (17:00)
[2019-08-30] MEDS ORDERED: FAT EMUL IV SCH (17:00)
[2019-08-30] MEDS ORDERED: SMOF TPN IV SCH (17:00)
[2019-08-30] MEDS ORDERED: DEXTROSE 70% IV SCH (17:00)
[2019-08-30] MEDS ORDERED: AMINO ACID 10% IV SCH (17:00)
[2019-08-30 21:01] VITALS: BP 91/46
[2019-08-31] MEDS: ERYTHROMYCIN 200 MG/5 ML ORAL SOL NG SCH ×2 (01:34→08:18)
[2019-08-31 01:35] VITALS: BP 94/53
[2019-08-31] MEDS: METOCLOPRAMIDE 5 MG/ML, 2ML IVPush SCH ×3 (01:35→14:00)
[2019-08-31] MEDS: HEPARIN 5,000 UNITS/ML, 1ML SQ SCH ×2 (01:35→10:00)
[2019-08-31 06:00] LABS: ANION GAP 5 mmol/L (5-15); CALCIUM 8.5 mg/dL (8.5-10.1); CHLORIDE 104 mmol/L (98-107); CREATININE 0.69 mg/dL (0.7-1.3)
[2019-08-31 07:52] VITALS: BP 97/53
[2019-08-31] MEDS: SODIUM CHLORIDE FLUSH 10ML SYR IVF SCH (08:19)
[2019-08-31] MEDS: PANTOPRAZOLE 40 MG IV IVPush SCH (08:19)
[2019-08-31] MEDS: INSULIN REGULAR MEDIUM DOSE Q6H X 48HRS SQ-INSULIN SCH (08:32)
[2019-08-31] MEDS: INSULIN GLARGINE 100 UNITS/ML, PEN SQ-INSULIN SCH (08:32)
[2019-08-31] MEDS ORDERED: [UNRECOGNIZED DRUG - CODE] PO (11:25)
[2019-08-31 15:07] VITALS: BP 79/45
[2019-08-31] MEDS ORDERED: DEXTROSE 70% IV SCH (17:00)
[2019-08-31] MEDS ORDERED: SMOF TPN IV SCH (17:00)
[2019-08-31] MEDS ORDERED: [UNRECOGNIZED DRUG - OTHER] IV SCH (17:00)
[2019-08-31] MEDS ORDERED: AMINO ACID 10% IV SCH (17:00)
[2019-08-31] MEDS ORDERED: FAT EMUL IV SCH (17:00)
== END 2019-08-31 16:00 | disposition home or self-care (01) | DRG 380 ==
LOC: ED 16:29 → EDIP 18:18 → 3N 19:25
PROVIDERS: ADMIT Internal Medicine; ATTEND Family Medicine
PROC: 0D7 Gastrointestinal System, Dilation (ICD-10-PCS; 2019-08-20)
PROC: 0DB68ZX Excision of Stomach, Via Natural or Artificial Opening Endoscopic, Diagnostic (ICD-10-PCS; principal; 2019-08-20 09:30)
DX: K31.1 Adult hypertrophic pyloric stenosis (principal); N17.0 Acute kidney failure with tubular necrosis; E43 Unspecified severe protein-calorie malnutrition; R65.10 Systemic inflammatory response syndrome (SIRS) of non-infectious origin without acute organ dysfunction; K31.84 Gastroparesis; N18.9 Chronic kidney disease, unspecified; E87.6 Hypokalemia; I95.9 Hypotension, unspecified; E10.43 Type 1 diabetes mellitus with diabetic autonomic (poly)neuropathy; K21.0 Gastro-esophageal reflux disease with esophagitis; E10.22 Type 1 diabetes mellitus with diabetic chronic kidney disease; E10.65 Type 1 diabetes mellitus with hyperglycemia; K27.9 Peptic ulcer, site unspecified, unspecified as acute or chronic, without hemorrhage or perforation; D64.9 Anemia, unspecified; E86.0 Dehydration; Z90.49 Acquired absence of other specified parts of digestive tract; Z87.11 Personal history of peptic ulcer disease; Z79.4 Long term (current) use of insulin; Z87.891 Personal history of nicotine dependence; Z80.0 Family history of malignant neoplasm of digestive organs; Z83.438 Family history of other disorder of lipoprotein metabolism and other lipidemia; Z79.84 Long term (current) use of oral hypoglycemic drugs; Z79.899 Other long term (current) drug therapy; Z91.041 Radiographic dye allergy status
CPT/HCPCS: 36415; 74018; 74240; 74248; 96361; 96374; 96375; 99285; J3475; J3490; 36573; 71045; 74176; 80048; 80053; 80069; 81001; 82436; 82570; 82962; 83036; 83605; 83690; 83735; 84100; 84133; 84134; 84300; 84478; 85025; 87040; 88305; 88342; 93005; G0378; J0610; J1100; J1644; J1815; J1885; J2250; J2405; J2704; J3010; J3411; J3480; Q9967; C1725; C1751; C9113; J0330; J1720; J2270; J2765; J3420; J7030; J7040